=== PATIENT | male | born 1940 | race Caucasian/White ===

== ENCOUNTER 2016-10-03 13:06 | Inpatient (IN) | payer MEDICARE, BC ==
[2016-10-03 15:20] LABS: Hematocrit 25 % (42-52); Hemoglobin 8.6 g/dl (14.0-18.0); Mean Corpuscular HGB Conc 34 g/dl (31-36); Mean Corpuscular Hemoglobin 33 pg (27-31); Mean Corpuscular Volume 98 fL (80-94); Mean Platelet Volume 10 um3 (7.4-10.4); Red Blood Count 2.58 10^6/ul (4.0-5.4); Red Cell Distribution Width 14 % (10.5-15); White Blood Count 5.2 10^3/ul (3.5-10.8)
[2016-10-03 15:21] LABS: Comments Flag Yes
[2016-10-03 15:22] LABS: Add Diff/Slide Review? Slide Review Added
[2016-10-03 15:30] LABS: Albumin 2.9 g/dL (3.2-5.2); BUN/Creatinine Ratio 26.2 (8-20); Calcium 8.2 mg/dL (8.6-10.3); EGFR African American 86.2 (>60); Potassium 3.8 mmol/L (3.5-5.0); Total Bilirubin 0.8 mg/dL (0.2-1.0); Total Protein 4.9 g/dL (6.4-8.9)
[2016-10-03] MEDS ORDERED: Pantoprazole IV* 40 MG IV ONE (15:51)
--- NOTE | 2016-10-03 15:53 | ED ---
Deniz, DoctorEssie, scribed for Donna Sanchez MD on 10/03/16 at 1338 . GI/ HPI - HPI Summary HPI Summary: 76 year old male arrived to [facility] c/o black tarry stools beginning yesterday. He has had two small black tarry stools, but has not had any BMs today. Pt additionally reports feeling dizziness and has had consistent nosebleeds for the past three weeks; he denies any abdominal pain. He is not taking Iron Supplements or Pepto Bismol. Pt has PMHx of CAD (dx in 1986) and has had multiple DE episodes and stents put in. His most recent DE was three weeks ago, during which a stent was placed. Pt had AFib during this procedure and as such is taking Zoralto as well as Brilinta and Asprin. He lives with his and does not smoke; his PCP is Dr. Tenisha Cabrera. - History of Current Complaint Chief Complaint: EDDizziness Time Seen by Provider: 10/03/16 13:31 Stated Complaint: BLOOD IN STOOL Hx Obtained From: Patient Onset/Duration: Started Days Ago Timing: Intermittent Severity: Moderate Current Severity: Moderate Vaginal Bleeding Description: Dark Red Pain Intensity: 0 Location of Pain: None Associated Signs and Symptoms: Positive: Dizziness, Black Tarry Stool, Other: - epistaxis. Negative: Abdominal Pain - Allergy/Home Medications Allergies/Adverse Reactions: Allergies Allergy/AdvReac Type Severity Reaction Status Date / Time No Known Allergies Allergy Verified 10/03/16 14:50 PMH/Surg Hx/FS Hx/Imm Hx Cardiovascular History: Reports: Hx Coronary Artery Disease, Hx Myocardial Infarction Infectious Disease History: Denies: Traveled Outside the [place] in Last 30 Days - Social History Occupation: Employed Full-time Lives: With Family Alcohol Use: Daily - 1 glass of wine/day Smoking Status (MU): Never Smoked Tobacco Review of Systems Negative: Fever Positive: Epistaxis Positive: Other - black tarry stools. Negative: Abdominal Pain All Other Systems Reviewed And Are Negative: Yes Physical Exam Triage Information Reviewed: Yes Vital Signs On Initial Exam: Initial Vitals Temp Pulse Resp BP Pulse Ox 98 F 53 16 112/53 100 10/03/16 13:20 10/03/16 13:20 10/03/16 13:20 10/03/16 13:20 10/03/16 13:20 Vital Signs Reviewed: Yes Appearance: Positive: Well-Appearing, No Pain Distress Skin: Positive: Warm, Skin Color Reflects Adequate Perfusion, Dry Eyes: Positive: EOMI, GWYN ENT: Positive: Pharynx normal, TMs normal Neck: Positive: Supple, Nontender Respiratory/Lung Sounds: Positive: Clear to Auscultation, Breath Sounds Present. Negative: Rales, Rhonchi, Wheezes Cardiovascular: Positive: RRR. Negative: Murmur, Rub Abdomen Description: Positive: Nontender, Soft. Negative: Distended, Guarding Bowel Sounds: Positive: Present Male Genital Exam: Positive: other - Moderate amount of external rectal bleeding Musculoskeletal: Positive: Strength/ROM Intact. Negative: Edema Left, Edema Right Neurological: Positive: Sensory/Motor Intact, Alert, Oriented to Person Place, Time, CN Intact II-III Psychiatric: Positive: Affect/Mood Appropriate Diagnostics - Vital Signs Vital Signs Temp Pulse Resp BP Pulse Ox 10/03/16 13:20 98 F 53 16 112/53 100 - Laboratory Lab Results: Lab Results 10/03/16 10/03/16 10/03/16 Range/Units 14:30 14:30 14:30 WBC 5.2 (3.5-10.8) 10^3/ul RBC 2.58 L (4.0-5.4) 10^6/ul Hgb 8.6 L (14.0-18.0) g/dl Hct 25 L (42-52) % MCV 98 H (80-94) fL MCH 33 H (27-31) pg MCHC 34 (31-36) g/dl RDW 14 (10.5-15) % Plt Count 72 L (150-450) 10^3/ul MPV 10 (7.4-10.4) um3 Neut % (Auto) 71.5 (38-83) % Lymph % (Auto) 20.7 L (25-47) % [place] % (Auto) 6.8 (1-9) % Eos % (Auto) 0.8 (0-6) % Baso % (Auto) 0.2 (0-2) % Absolute Neuts (auto) 3.7 (1.5-7.7) 10^3/ul Absolute Lymphs (auto) 1.1 (1.0-4.8) 10^3/ul Absolute Monos (auto) 0.4 (0-0.8) 10^3/ul Absolute Eos (auto) 0 (0-0.6) 10^3/ul Absolute Basos (auto) 0 (0-0.2) 10^3/ul Absolute Nucleated RBC 0 10^3/ul Nucleated RBC % 0 INR (Anticoag Therapy) 1.96 H (0.89-1.11) APTT 29.2 (26.0-36.3) seconds Sodium (133-145) mmol/L Potassium (3.5-5.0) mmol/L Chloride (101-111) mmol/L Carbon Dioxide (22-32) mmol/L Anion Gap (2-11) mmol/L BUN (6-24) mg/dL Creatinine (0.67-1.17) mg/dL Est GFR ( Amer) (>60) Est GFR (Non-Af Amer) (>60) BUN/Creatinine Ratio (8-20) Glucose (70-100) mg/dL Lactic Acid 1.2 (0.5-2.0) mmol/L Calcium (8.6-10.3) mg/dL Total Bilirubin (0.2-1.0) mg/dL AST (13-39) U/L ALT (7-52) U/L Alkaline Phosphatase (34-104) U/L Total Protein (6.4-8.9) g/dL Albumin (3.2-5.2) g/dL Globulin (2-4) g/dL Albumin/Globulin Ratio (1-3) Blood Type Antibody Screen 10/03/16 10/03/16 Range/Units 14:30 14:30 WBC (3.5-10.8) 10^3/ul RBC (4.0-5.4) 10^6/ul Hgb (14.0-18.0) g/dl Hct (42-52) % MCV (80-94) fL MCH (27-31) pg MCHC (31-36) g/dl RDW (10.5-15) % Plt Count (150-450) 10^3/ul MPV (7.4-10.4) um3 Neut % (Auto) (38-83) % Lymph % (Auto) (25-47) % [place] % (Auto) (1-9) % Eos % (Auto) (0-6) % Baso % (Auto) (0-2) % Absolute Neuts (auto) (1.5-7.7) 10^3/ul Absolute Lymphs (auto) (1.0-4.8) 10^3/ul Absolute Monos (auto) (0-0.8) 10^3/ul Absolute Eos (auto) (0-0.6) 10^3/ul Absolute Basos (auto) (0-0.2) 10^3/ul Absolute Nucleated RBC 10^3/ul Nucleated RBC % INR (Anticoag Therapy) (0.89-1.11) APTT (26.0-36.3) seconds Sodium 138 (133-145) mmol/L Potassium 3.8 (3.5-5.0) mmol/L Chloride 109 (101-111) mmol/L Carbon Dioxide 26 (22-32) mmol/L Anion Gap 3 (2-11) mmol/L BUN 28 H (6-24) mg/dL Creatinine 1.07 (0.67-1.17) mg/dL Est GFR ( Amer) 86.2 (>60) Est GFR (Non-Af Amer) 67.0 (>60) BUN/Creatinine Ratio 26.2 H (8-20) Glucose 114 H (70-100) mg/dL Lactic Acid (0.5-2.0) mmol/L Calcium 8.2 L (8.6-10.3) mg/dL Total Bilirubin 0.80 (0.2-1.0) mg/dL AST 24 (13-39) U/L ALT 24 (7-52) U/L Alkaline Phosphatase 55 (34-104) U/L Total Protein 4.9 L (6.4-8.9) g/dL Albumin 2.9 L (3.2-5.2) g/dL Globulin 2.0 (2-4) g/dL Albumin/Globulin Ratio 1.5 (1-3) Blood Type B Positive Antibody Screen Pending Result Diagrams: 10/03/16 14:30 10/03/16 14:30 Lab Statement: Any lab studies that have been ordered have been reviewed, and results considered in the medical decision making process. - EKG 13:26 EKG Rhythm: Sinus Bradycardia EKG Interpretation: Sinus Bradycardia with RBBB. Diffuse t-wave inversions on precordial leads. EKG Comparison: Other - None to compare but pt had a recent DE, changes may be related to that. Re-Evaluation - Re-Evaluation First Eval Re-Evaluation Time: 15:43 Change: Unchanged Comment: Discussed treatment plan and informed pt about pending cardiology consult GIGU Course/Dx - Course Course Of Treatment: case discussed with both Augustus and Sohan given scant bleeding but with a significant drop in Hg the fear is he will bleed significantly and it will be difficult to tell if this is new or old. Pt agrees to admission protonix started - Diagnoses Provider Diagnoses: GI bleed Discharge - Discharge Plan Condition: Stable Disposition: ADMITTED TO [facility] The documentation as recorded by the Doctor dalton Tahera accurately reflects the service I personally performed and the decisions made by me, Donna Sanchez MD.
[2016-10-03] MEDS ORDERED: Nitroglycerin TAB 0.4 MG* 0.4 MG TAB SL PRN (16:44)
[2016-10-03] MEDS: Pantoprazole IV* 80 MG in NS 0.9% 250 ML* 250 ML IV SCH (17:09)
[2016-10-03] MEDS ORDERED: Niacin ER TAB* 500 MG PO SCH (18:00)
[2016-10-03] MEDS: NS 0.9% 1000 ML* 1,000 ML IV SCH (20:12)
[2016-10-03 20:20] LABS: Hematocrit 25 % (42-52); Hemoglobin 8.4 g/dl (14.0-18.0)
[2016-10-03 20:23] LABS: Comments Flag Yes
[2016-10-03] MEDS ORDERED: Niacin ER TAB* 500 MG PO ONE (21:40)
[2016-10-03] MEDS: Ticagrelor* 90 MG TAB PO SCH (21:54)
[2016-10-03] MEDS: Metoprolol Tartrate TAB* 25 MG PO SCH (21:54)
[2016-10-04 01:07] LABS: Hematocrit 20 % (42-52)
[2016-10-04 01:11] LABS: Comments Flag Yes
[2016-10-04] MEDS: Pantoprazole IV* 80 MG in NS 0.9% 250 ML* 250 ML IV SCH ×4 (04:05→21:34)
--- NOTE | 2016-10-04 04:16 | HP ---
HISTORY AND PHYSICAL: DATE OF ADMISSION: 10/03/16 TIME OF EVALUATION: 4:15 p.m. PRIMARY CARE PROVIDER: Dr. Juliana Cabrera. DOCUMENTATION DESIGNER: Dr. Zander Coffman. CONSULTING FARM EQUIPMENT SERVICE TECHNICIAN: Dr. Price Latham. CHIEF COMPLAINT: "I'm lightheaded." HISTORY OF PRESENT ILLNESS: Mr. Moulton is a 76-year-old male with a past medical history of coronary artery disease, BPH who presents to the emergency room with complaints of lightheadedness. The patient states that he was in his usual state of health until 3 weeks ago. He went to visit family in [place] and while there, he experienced some chest pain that initially he thought was associated with indigestion as he had had Mexican food the night before. The symptoms persisted and he went to the emergency room where he was found to have an CO. He states he was admitted to [facility] in [place], [place], and he underwent cardiac catheterization and had a stent placed. He states that after the procedure, he developed atrial fibrillation. So, when he was discharged, he went home on aspirin, Brilinta, and Xarelto. He states that he was doing well with no symptoms, but 3 days ago, he started to have lightheadedness when changing position. Two days ago, he had one bowel movement that he described as tarry stool and he saw a little bit of blood when he wiped himself, but he states that he was not concerned because he states that he is used with bleeding when he is shaving or when he cuts himself. So, he did not think that amount of blood signified anything. The next day, he had another episode of tarry stools and he has had epistaxis on and off for the past 3 weeks too, but he does not describe any large volume epistaxis or swallowing blood. Today, he felt more lightheaded and weak what prompted his visit to the emergency room. He denies any prior episodes of GI issues in the past. He never had an endoscopy. He had a routine colonoscopy 5 years ago that he describes was normal done by Dr. Yanez. He denies chest pain, palpitations, or shortness of breath, and at the time of my evaluation, the patient is in normal sinus rhythm. PAST MEDICAL HISTORY: 1. Coronary artery disease. The patient states he had a CABG in 1986 and has had multiple procedures with stent, angioplasty since then. The last one was 3 weeks ago as described above. 2. BPH. MEDICATIONS: 1. Aspirin 81 mg p.o. daily. 2. Atorvastatin 40 mg p.o. daily. 3. Metoprolol tartrate 12.5 mg p.o. b.i.d. 4. Niaspan ER 1000 mg p.o. b.i.d. 5. Nitroglycerin 0.4 mg sublingual q.5 minutes p.r.n. chest pain, maximum 3 doses. 6. Xarelto 20 mg p.o. daily with meals. 7. Brilinta 90 mg p.o. b.i.d. ALLERGIES: No known drug allergies. FAMILY HISTORY: There is a strong family history of coronary artery disease. His father, his brother all had CABGs. Brother has lung cancer. Mother passed of colon cancer. SOCIAL HISTORY: The patient smoked for 5 years when he was in his 20s. He states that he drinks a glass of wine a day, but has avoided it since this last heart attack as he was not sure how his new medications would interact with alcohol. He denies drug use. Surrogate decision maker is his , Catie Fitzgerald. Phone number is [phone]. 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 REVIEW OF SYSTEMS: A 14-point review of systems was performed and all the pertinent negative and positive findings are in the HPI. PHYSICAL EXAMINATION GENERAL: The patient is a pleasant, elderly male, lying in the ER stretcher, in no acute distress. VITAL SIGNS: Temperature 98.6, heart rate is 64, respiratory rate is 19, oxygen saturation is 98% on room air, blood pressure is 105/47. HEENT: Pupils are equal, reactive to light. Moist mucous membranes. There is no pallor at this time. CHEST: Breath sounds present bilaterally with no added sounds. CVS: Normal S1, S2. Regular rate and rhythm. ABDOMEN: Soft, nontender, nondistended. Bowel sounds are present. EXTREMITIES: No edema. NEUROLOGIC: He is alert and oriented x3. Able to move all 4 extremities. LABORATORY AND IMAGING DATA: The patient had a CBC that showed a WBC of 5.2, hemoglobin of 8.6, hematocrit of 25, MCV of 98, MCH of 33, platelets of 72. INR is 1.96. Chemistry showed a sodium of 138, potassium 3.8, chloride of 109, bicarb 26, BUN of 29, creatinine of 1.07, glucose of 114. Lactic acid was 1.2. LFTs were normal. EKG done on 10/03/16 at 1326 showed sinus bradycardia at 50 beats per minute with Q waves in II, III, aVF with T inversions in V1 to V6. There is no prior EKG to compare. ASSESSMENT AND PLAN: Mr. Moulton is a 76-year-old male with an extensive history of coronary artery disease with an myocardial infarction 3 weeks ago while visiting family in [place], status post heart cath and stent, also developed atrial fibrillation after his cardiac catheterization, benign prostatic hypertrophy who presented to the emergency room with complaints of tarry stools and lightheadedness, found to have an upper GI bleed. 1. Upper GI bleed: Suspect the patient has an upper GI bleed as he has had tarry stools. BUN is elevated at 28 with a normal creatinine. The patient is on aspirin, Brilinta, and Xarelto and I have discussed his anticoagulation with his director software (Dr. Coffman). His recommendation at this time was to discontinue Xarelto, but continue aspirin and Brilinta for now. The patient will be admitted to the telemetry floor. A GI consultation was requested with Dr. Latham. He will be on a clear liquid diet. He will be started on a Protonix drip and Dr. Latham will hopefully perform upper endoscopy tomorrow. The patient is hemodynamically stable at this time and I do not think Kcentra is indicated at this point. The idea is to stop Xarelto and continue to monitor him. 2. Acute blood loss anemia: The patient's hemoglobin is 8.6 today from a baseline around 14 two years ago. With hemoglobin of 8.6, I do not think the patient needs transfusion at this point. He is hemodynamically stable and is only symptomatic with change in position, but I believe if his hemoglobin goes below 8, transfusion will be indicated considering his history of coronary artery disease and recent procedure. 3. Thrombocytopenia: The patient's platelet count is 72. He did have thrombocytopenia in the past, but it was in the 100,000 before. For now, we are just going to monitor. 4. Coronary artery disease: Appears to be stable at this time. He has no complaints of chest pain. I am going to obtain records from [place]. He is going to be continued on aspirin, Brilinta for now as discussed with Dr. Coffman. I am going to continue his metoprolol with holding parameters and I am also going to continue his atorvastatin. 5. DVT prophylaxis: The patient has a score of 3 on the DVT Prophylaxis Risk Assessment Guide and pharmacological prophylaxis is contraindicated in the setting of an upper GI bleed. The patient will have SCDs. 6. Code status is full. TIME SPENT: Approximately 60 minutes were spent with the patient interview, medical records review, physical examination to complete this admission, more than half this time was spent [id number] with the patient in coordination of care. CC: Dr. Juliana Cabrera; Dr. Zander Coffman; Dr. Price Latham* [id number]/CPS #: [id number] MTDD
[2016-10-04 06:12] LABS: Hematocrit 23 % (42-52); Hemoglobin 7.9 g/dl (14.0-18.0); Mean Corpuscular HGB Conc 34 g/dl (31-36); Mean Corpuscular Hemoglobin 33 pg (27-31); Mean Corpuscular Volume 99 fL (80-94); Mean Platelet Volume 10 um3 (7.4-10.4); Red Blood Count 2.36 10^6/ul (4.0-5.4); Red Cell Distribution Width 14 % (10.5-15); White Blood Count 4.1 10^3/ul (3.5-10.8)
[2016-10-04 06:13] LABS: Comments Flag Yes
[2016-10-04 06:26] LABS: BUN/Creatinine Ratio 23.1 (8-20); Calcium 7.8 mg/dL (8.6-10.3); EGFR African American 85.3 (>60); EGFR Non-African American 66.3 (>60); Potassium 3.9 mmol/L (3.5-5.0)
[2016-10-04] MEDS: NS 0.9% 1000 ML* 1,000 ML IV SCH (06:51)
[2016-10-04] MEDS: Metoprolol Tartrate TAB* 25 MG PO SCH ×2 (08:26→21:19)
[2016-10-04] MEDS: Atorvastatin* 40 MG TAB PO SCH (08:30)
[2016-10-04] MEDS: Ticagrelor* 90 MG TAB PO SCH ×2 (08:31→21:29)
[2016-10-04] MEDS: Niacin ER TAB* 500 MG PO SCH ×3 (08:31→17:46)
[2016-10-04] MEDS: Aspirin EC Low Dose* 81 MG TAB.EC PO SCH (08:31)
[2016-10-04] MEDS ORDERED: Pantoprazole IV* 40 MG ONE (13:58)
[2016-10-04] MEDS ORDERED: Meperidine SYRINGE* 50 MG/ML ONE (15:25)
[2016-10-04] MEDS ORDERED: Midazolam* 1 MG/ML 10 ML VIAL (10 MG) ONE (15:26)
--- NOTE | 2016-10-04 19:45 | PN ---
Subjective Date of Service: 10/04/16 Interval History: Pt is feeling ok but he is very disoriented. He denies pain. He keeps asking me why I have him here for this game. Objective Active Medications: Aspirin (Aspirin Ec Low Dose*) 81 mg PO DAILY [facility] Last Admin: 10/04/16 08:31 Dose: 81 mg Atorvastatin Calcium (Lipitor*) 40 mg PO DAILY [facility] Last Admin: 10/04/16 08:30 Dose: 40 mg Pantoprazole Sodium 80 mg/ (Sodium Chloride) 250 mls @ 25 mls/hr IV Q10H [facility] Last Admin: 10/04/16 17:44 Dose: 25 mls/hr Sodium Chloride (Ns 0.9% 1000 Ml*) 1,000 mls @ 100 mls/hr IV PER RATE [facility] Last Admin: 10/04/16 06:51 Dose: 100 mls/hr Metoprolol Tartrate (Lopressor Tab*) 12.5 mg PO BID [facility] Last Admin: 10/04/16 08:26 Dose: Not Given Niacin (Niaspan Er Tab*) 1,000 mg PO QAM [facility] Last Admin: 10/04/16 08:31 Dose: 1,000 mg Niacin (Niaspan Er Tab*) 2,000 mg PO QPM [facility] Last Admin: 10/04/16 17:46 Dose: Not Given Nitroglycerin (Nitroglycerin Tab 0.4 Mg*) 0.4 mg SL Q5M PRN PRN Reason: PAIN - CHEST Ticagrelor (Brilinta*) 90 mg PO BID [facility] Last Admin: 10/04/16 08:31 Dose: 90 mg Vital Signs 10/03/16 10/03/16 10/03/16 20:00 20:21 23:29 Temperature 98.1 F 98.6 F Pulse Rate 64 57 Respiratory 16 18 16 Rate Blood Pressure 118/45 85/51 (mmHg) O2 Sat by Pulse 99 99 Oximetry 10/03/16 10/04/16 10/04/16 23:37 00:54 03:41 Temperature 98.4 F Pulse Rate 60 54 Respiratory 16 Rate Blood Pressure 87/45 100/58 92/45 (mmHg) O2 Sat by Pulse 100 Oximetry 10/04/16 10/04/16 10/04/16 06:13 07:14 07:28 Temperature 97.8 F 98.0 F Pulse Rate 64 64 65 Respiratory 16 16 Rate Blood Pressure 96/46 90/42 (mmHg) O2 Sat by Pulse 100 97 Oximetry 10/04/16 10/04/16 10/04/16 08:00 11:19 17:13 Temperature 98.3 F 97.9 F Pulse Rate 62 59 Respiratory 16 16 Rate Blood Pressure 92/42 97/45 (mmHg) O2 Sat by Pulse 99 98 Oximetry 10/04/16 10/04/16 10/04/16 17:15 17:30 17:45 Temperature Pulse Rate 59 59 68 Respiratory Rate Blood Pressure 94/44 95/42 98/54 (mmHg) O2 Sat by Pulse 98 96 99 Oximetry 10/04/16 10/04/16 18:00 18:30 Temperature Pulse Rate 56 55 Respiratory Rate Blood Pressure 96/44 92/44 (mmHg) O2 Sat by Pulse 98 98 Oximetry Oxygen Devices in Use Now: None Appearance: Elderly male sitting on the bed, squirming all over the place, NAD Eyes: No Scleral Icterus Ears/Nose/Mouth/Throat: Mucous Membranes Moist Respiratory: Symmetrical Chest Expansion and Respiratory Effort, Clear to Auscultation Cardiovascular: NL Sounds; No Murmurs; No JVD, RRR, No Edema Abdominal: NL Sounds; No Tenderness; No Distention Extremities: No Clubbing, Cyanosis Skin: No Rash or Ulcers, No Nodules or Sclerosis Neurological: - - very confused Result Diagrams: 10/04/16 05:39 10/04/16 05:39 Additional Lab and Data: Lab Results 10/03/16 10/03/16 10/03/16 Range/Units 14:30 14:30 14:30 WBC 5.2 (3.5-10.8) 10^3/ul RBC 2.58 L (4.0-5.4) 10^6/ul Hgb 8.6 L (14.0-18.0) g/dl Hct 25 L (42-52) % MCV 98 H (80-94) fL MCH 33 H (27-31) pg MCHC 34 (31-36) g/dl RDW 14 (10.5-15) % Plt Count 72 L (150-450) 10^3/ul MPV 10 (7.4-10.4) um3 Neut % (Auto) 71.5 (38-83) % Lymph % (Auto) 20.7 L (25-47) % [place] % (Auto) 6.8 (1-9) % Eos % (Auto) 0.8 (0-6) % Baso % (Auto) 0.2 (0-2) % Absolute Neuts (auto) 3.7 (1.5-7.7) 10^3/ul Absolute Lymphs (auto) 1.1 (1.0-4.8) 10^3/ul Absolute Monos (auto) 0.4 (0-0.8) 10^3/ul Absolute Eos (auto) 0 (0-0.6) 10^3/ul Absolute Basos (auto) 0 (0-0.2) 10^3/ul Absolute Nucleated RBC 0 10^3/ul Nucleated RBC % 0 INR (Anticoag Therapy) 1.96 H (0.89-1.11) APTT 29.2 (26.0-36.3) seconds Sodium (133-145) mmol/L Potassium (3.5-5.0) mmol/L Chloride (101-111) mmol/L Carbon Dioxide (22-32) mmol/L Anion Gap (2-11) mmol/L BUN (6-24) mg/dL Creatinine (0.67-1.17) mg/dL Est GFR ( Amer) (>60) Est GFR (Non-Af Amer) (>60) BUN/Creatinine Ratio (8-20) Glucose (70-100) mg/dL Lactic Acid 1.2 (0.5-2.0) mmol/L Calcium (8.6-10.3) mg/dL Total Bilirubin (0.2-1.0) mg/dL AST (13-39) U/L ALT (7-52) U/L Alkaline Phosphatase (34-104) U/L Total Protein (6.4-8.9) g/dL Albumin (3.2-5.2) g/dL Globulin (2-4) g/dL Albumin/Globulin Ratio (1-3) Blood Type Antibody Screen 10/03/16 10/03/16 Range/Units 14:30 14:30 WBC (3.5-10.8) 10^3/ul RBC (4.0-5.4) 10^6/ul Hgb (14.0-18.0) g/dl Hct (42-52) % MCV (80-94) fL MCH (27-31) pg MCHC (31-36) g/dl RDW (10.5-15) % Plt Count (150-450) 10^3/ul MPV (7.4-10.4) um3 Neut % (Auto) (38-83) % Lymph % (Auto) (25-47) % [place] % (Auto) (1-9) % Eos % (Auto) (0-6) % Baso % (Auto) (0-2) % Absolute Neuts (auto) (1.5-7.7) 10^3/ul Absolute Lymphs (auto) (1.0-4.8) 10^3/ul Absolute Monos (auto) (0-0.8) 10^3/ul Absolute Eos (auto) (0-0.6) 10^3/ul Absolute Basos (auto) (0-0.2) 10^3/ul Absolute Nucleated RBC 10^3/ul Nucleated RBC % INR (Anticoag Therapy) (0.89-1.11) APTT (26.0-36.3) seconds Sodium 138 (133-145) mmol/L Potassium 3.8 (3.5-5.0) mmol/L Chloride 109 (101-111) mmol/L Carbon Dioxide 26 (22-32) mmol/L Anion Gap 3 (2-11) mmol/L BUN 28 H (6-24) mg/dL Creatinine 1.07 (0.67-1.17) mg/dL Est GFR ( Amer) 86.2 (>60) Est GFR (Non-Af Amer) 67.0 (>60) BUN/Creatinine Ratio 26.2 H (8-20) Glucose 114 H (70-100) mg/dL Lactic Acid (0.5-2.0) mmol/L Calcium 8.2 L (8.6-10.3) mg/dL Total Bilirubin 0.80 (0.2-1.0) mg/dL AST 24 (13-39) U/L ALT 24 (7-52) U/L Alkaline Phosphatase 55 (34-104) U/L Total Protein 4.9 L (6.4-8.9) g/dL Albumin 2.9 L (3.2-5.2) g/dL Globulin 2.0 (2-4) g/dL Albumin/Globulin Ratio 1.5 (1-3) Blood Type B Positive Antibody Screen Pending Microbiology and Other Data: Microbiology 10/04/16 05:13 Stool Occult Blood (JULIANA) - Final Stool Assess/Plan/Problems-Billing Mr Moulton is a 76 yo M who has a h/o recent NSTEMI s/p cardiac catheterization and stent placement, atrial fibrillation on xarelto who presented to the ER wtih c/o black tarry stools and lightheadedness. - Patient Problems (1) Upper GI bleed Current Visit: Yes Status: Acute Code(s): K92.2 - GASTROINTESTINAL HEMORRHAGE, UNSPECIFIED SNOMED Code(s): 41087555 Comment: Pt is s/p EGD earlier today. Gastritis/duodenitis was found. No active bleeding. Will continue the protonix drip for now. Repeat H/H tomorrow AM. He should follow up with Dr. Latham in about 1 month. (2) CAD (coronary artery disease) Current Visit: Yes Status: Acute Code(s): I25.10 - ATHSCL HEART DISEASE OF [place] CORONARY ARTERY W/O ANG PCTRS SNOMED Code(s): 44722058 Comment: Continue ASA, brillinta, niacin, lipitor and metoprolol. No complaints of chest pain at this time but he is very confused. (3) Atrial fibrillation Current Visit: Yes Status: Acute Code(s): I48.91 - UNSPECIFIED ATRIAL FIBRILLATION SNOMED Code(s): 74073917 Comment: Pt has a h/o afib following his recent MT. He had been started on xarelto though this is now discontinued due to his GI bleed. He is currently in NSR. He will remain off the xarelto until seen in follow up by cardiology. (4) DVT prophylaxis Current Visit: Yes Status: Acute Code(s): PDO9980 - SNOMED Code(s): 899228048 (5) Full code status Current Visit: Yes Status: Acute Code(s): Z78.9 - OTHER SPECIFIED HEALTH STATUS SNOMED Code(s): 015142054
--- NOTE | 2016-10-04 23:36 | CONS ---
GASTROENTEROLOGY CONSULTATION DATE OF CONSULT: 10/04/16 CONSULTING PHYSICIANS: Juliana Cabrera MD; Zander Coffman MD REASON FOR CONSULTATION: Melena in a man on Brilinta and Xarelto following a 5- day admission to a [facility] where a cardiac stent was placed. 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 He went to a local hospital and while there had a cardiac stent placed. He thinks it was done in time, that documentation of any cardiac damage is not available now. He did have some atrial fibrillation for about 16 hours and says he has never had that before. He was thus discharged on his usual baby aspirin with the addition of Brilinta 90 twice a day and Xarelto 20 mg. He was fine for a few days after flying back here to [place]. Approximately on 09/29/16, he began feeling a little lightheaded and the stool has turned dark. He decided to wait out the weekend and then he called Dr. Coffman's office and reporting to the nurse dark stool and was directed to the emergency room, where his hemoglobin was 8.6, hematocrit 25, and MCV 98. He was placed on Protonix drip and Xarelto discontinued. He had already seen Dr. Coffman in followup and amiodarone had been discontinued, though he was continued on metoprolol. He has never had any problem in the past and does not take any gastrointestinal remedies. He has never had an upper endoscopy. PAST MEDICAL HISTORY: 1. Coronary disease - status post coronary artery bypass in 1986 and then 2 stents placed in 1991. In 1996, there was concern and he had a cardiac catheterization, where stents were not placed as apparently anatomy was not favorable. He follows up with Dr. Coffman regularly. 2. Appendectomy - 1946. 3. Diverticulosis - seen at his routine colonoscopies, 1996 and 2005. MEDICATIONS: At home include: 1. Niaspan. 2. Atorvastatin. 3. Baby aspirin. 4. Metoprolol. 5. Recent addition of Brilinta. 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 REVIEW OF SYSTEMS: No history of hemoptysis, TB, COPD, smoking, hepatitis, jaundice, rectal bleeding, dietary supplements, or syncope. He has never had any seizures. PHYSICAL EXAM: He is a healthy-appearing, slightly pale, older man appearing much younger than stated age. He is an excellent historian. HEENT exam is unremarkable. He has no adenopathy. His lungs are clear and heart sounds are normal. The abdomen is flat with an old appy scar. Soft and nontender. Rectal : Deferred. Extremities show no edema. Neurologic shows normal cranial nerves , speech, gait, and strength of all 4 extremities. LABS: His hemoglobin fell to 8.4, then 7.0 and then this morning bounced up to 7.9. BUN initially was 28, above his usual baseline in the teens, although he did have a BUN of 24, 05/17/16. His albumin was 2.9. This is the only value in the EMR. INR was 1.96 on admission presumably from Xarelto effect. IMPRESSION: Melena in a man on triple anticoagulation after coronary stents. He is in sinus rhythm now and the decision has been made to stop Xarelto. He is being treated empirically for a peptic condition, which is appropriate and he will have upper endoscopy. [id number]/[facility] #: [id number] [facility]AMPUS[facility]
[2016-10-05] MEDS: Pantoprazole IV* 80 MG in NS 0.9% 250 ML* 250 ML IV SCH ×2 (04:19→10:49)
[2016-10-05] MEDS: NS 0.9% 1000 ML* 1,000 ML IV SCH (04:20)
[2016-10-05 04:58] LABS: Hematocrit 23 % (42-52); Hemoglobin 7.7 g/dl (14.0-18.0); Mean Corpuscular HGB Conc 34 g/dl (31-36); Mean Corpuscular Hemoglobin 34 pg (27-31); Mean Corpuscular Volume 99 fL (80-94); Mean Platelet Volume 10 um3 (7.4-10.4); Red Blood Count 2.31 10^6/ul (4.0-5.4); Red Cell Distribution Width 14 % (10.5-15); White Blood Count 3.4 10^3/ul (3.5-10.8)
[2016-10-05 04:59] LABS: Comments Flag Yes
[2016-10-05] MEDS: Atorvastatin* 40 MG TAB PO SCH (08:40)
[2016-10-05] MEDS: Metoprolol Tartrate TAB* 25 MG PO SCH (08:40)
[2016-10-05] MEDS: Niacin ER TAB* 500 MG PO SCH (08:40)
[2016-10-05] MEDS: Ticagrelor* 90 MG TAB PO SCH (08:40)
[2016-10-05] MEDS: Aspirin EC Low Dose* 81 MG TAB.EC PO SCH (08:40)
--- NOTE | 2016-10-05 10:44 | PRO ---
DATE: 10/04/16 - ROOM #447 REFERRING PHYSICIAN: Zander Coffman MD * PROCEDURE: Upper gastrointestinal endoscopy. INDICATION: Melena for four days with hemoglobin falling to 7.0 in a man who had a cardiac stent three weeks ago. ENDOSCOPIST: Dr. Latham. MEDICATIONS: Midazolam 5, meperidine 37.5. FINDINGS: He is a tall, healthy-appearing man, appearing younger than the stated age. EGD: Larynx - symmetric limited views. Esophagus - Easily entered. The mucosa is normal in the upper, mid, and lower esophagus. The GE junction is a little loose, but there are no erosions and no chronic changes. There is no hiatal hernia, no gagging or fundic prolapse. Stomach - Generally normal mucosa in the cardia, fundus, and body. In the distal antrum, there is just a slight amount of granularity and irritation in the prepyloric area, 6 to 7 o'clock orientation. There is no bleeding per se. No AVM is seen. Pylorus appears normal. Duodenum - the proximal bulb appears normal. At the distal bulb, there is some erythema; and then, in the second portion of the duodenum, a fair number of discrete submillimeter red points. There are no erosions and no bleeding. The second portion has a very prominent papilla and intramural common bile duct. No blood is seen, and no AVMs. IMPRESSION: 1. Gastritis and duodenitis - probably from the baby aspirin. 2. Gastrointestinal bleeding - upper GI pattern as the BUN was 10 to 12 points above his baseline and presenting with melena. He is probably bleeding from aspirin gastritis under the influence of Brilinta and Xarelto in combination. An arbitrary 10 days of double-dose Protonix followed by single dose is recommended. He was in sinus rhythm the entire procedure, so avoiding Xarelto appears reasonable. [id number]/[facility] #: [id number] [facility]
[2016-10-05 11:35] VITALS: BP 115/41
--- NOTE | 2016-10-05 14:02 | PN ---
Subjective Date of Service: 10/05/16 Interval History: Mr. Moulton denies complaint and is very eager for discharge. Objective Active Medications: Aspirin (Aspirin Ec Low Dose*) 81 mg PO DAILY [facility] Atorvastatin Calcium (Lipitor*) 40 mg PO DAILY [facility] Pantoprazole Sodium 80 mg/ (Sodium Chloride) 250 mls @ 25 mls/hr IV Q10H [facility] Sodium Chloride (Ns 0.9% 1000 Ml*) 1,000 mls @ 100 mls/hr IV PER RATE [facility] Metoprolol Tartrate (Lopressor Tab*) 12.5 mg PO BID [facility] Niacin (Niaspan Er Tab*) 1,000 mg PO QAM [facility] Niacin (Niaspan Er Tab*) 2,000 mg PO QPM [facility] Nitroglycerin (Nitroglycerin Tab 0.4 Mg*) 0.4 mg SL Q5M PRN Ticagrelor (Brilinta*) 90 mg PO BID [facility] Vital Signs 10/04/16 10/04/16 10/04/16 17:13 17:15 17:30 Temperature 97.9 F Pulse Rate 59 59 59 Respiratory Rate Blood Pressure 97/45 94/44 95/42 (mmHg) O2 Sat by Pulse 98 98 96 Oximetry 10/04/16 10/04/16 10/04/16 17:45 18:00 18:30 Temperature Pulse Rate 68 56 55 Respiratory Rate Blood Pressure 98/54 96/44 92/44 (mmHg) O2 Sat by Pulse 99 98 98 Oximetry 10/04/16 10/04/16 10/04/16 19:00 19:39 21:09 Temperature 97.9 F Pulse Rate 58 65 Respiratory 16 16 Rate Blood Pressure 100/49 101/45 (mmHg) O2 Sat by Pulse 99 97 Oximetry 10/05/16 10/05/16 10/05/16 00:14 03:16 07:16 Temperature 98.0 F 98.2 F 97.7 F Pulse Rate 58 62 63 Respiratory 20 20 12 Rate Blood Pressure 96/45 109/50 107/52 (mmHg) O2 Sat by Pulse 97 95 98 Oximetry 10/05/16 10/05/16 08:00 11:34 Temperature 97.4 F Pulse Rate 58 Respiratory 16 18 Rate Blood Pressure 115/41 (mmHg) O2 Sat by Pulse 100 Oximetry Oxygen Devices in Use Now: None Appearance: Male sitting up in bed in NAD Respiratory: Symmetrical Chest Expansion and Respiratory Effort, Clear to Auscultation Cardiovascular: NL Sounds; No Murmurs; No JVD, No Edema Abdominal: NL Sounds; No Tenderness; No Distention Extremities: No Edema Skin: No Rash or Ulcers Neurological: Alert and Oriented x 3, NL Muscle Strength and Tone Nutrition: Taking PO's Result Diagrams: 10/05/16 04:29 10/04/16 05:39 Additional Lab and Data: Lab Results 10/03/16 10/03/16 10/03/16 Range/Units 14:30 14:30 14:30 WBC 5.2 (3.5-10.8) 10^3/ul RBC 2.58 L (4.0-5.4) 10^6/ul Hgb 8.6 L (14.0-18.0) g/dl Hct 25 L (42-52) % MCV 98 H (80-94) fL MCH 33 H (27-31) pg MCHC 34 (31-36) g/dl RDW 14 (10.5-15) % Plt Count 72 L (150-450) 10^3/ul MPV 10 (7.4-10.4) um3 Neut % (Auto) 71.5 (38-83) % Lymph % (Auto) 20.7 L (25-47) % [place] % (Auto) 6.8 (1-9) % Eos % (Auto) 0.8 (0-6) % Baso % (Auto) 0.2 (0-2) % Absolute Neuts (auto) 3.7 (1.5-7.7) 10^3/ul Absolute Lymphs (auto) 1.1 (1.0-4.8) 10^3/ul Absolute Monos (auto) 0.4 (0-0.8) 10^3/ul Absolute Eos (auto) 0 (0-0.6) 10^3/ul Absolute Basos (auto) 0 (0-0.2) 10^3/ul Absolute Nucleated RBC 0 10^3/ul Nucleated RBC % 0 INR (Anticoag Therapy) 1.96 H (0.89-1.11) APTT 29.2 (26.0-36.3) seconds Sodium (133-145) mmol/L Potassium (3.5-5.0) mmol/L Chloride (101-111) mmol/L Carbon Dioxide (22-32) mmol/L Anion Gap (2-11) mmol/L BUN (6-24) mg/dL Creatinine (0.67-1.17) mg/dL Est GFR ( Amer) (>60) Est GFR (Non-Af Amer) (>60) BUN/Creatinine Ratio (8-20) Glucose (70-100) mg/dL Lactic Acid 1.2 (0.5-2.0) mmol/L Calcium (8.6-10.3) mg/dL Total Bilirubin (0.2-1.0) mg/dL AST (13-39) U/L ALT (7-52) U/L Alkaline Phosphatase (34-104) U/L Total Protein (6.4-8.9) g/dL Albumin (3.2-5.2) g/dL Globulin (2-4) g/dL Albumin/Globulin Ratio (1-3) Blood Type Antibody Screen 10/03/16 10/03/16 Range/Units 14:30 14:30 WBC (3.5-10.8) 10^3/ul RBC (4.0-5.4) 10^6/ul Hgb (14.0-18.0) g/dl Hct (42-52) % MCV (80-94) fL MCH (27-31) pg MCHC (31-36) g/dl RDW (10.5-15) % Plt Count (150-450) 10^3/ul MPV (7.4-10.4) um3 Neut % (Auto) (38-83) % Lymph % (Auto) (25-47) % [place] % (Auto) (1-9) % Eos % (Auto) (0-6) % Baso % (Auto) (0-2) % Absolute Neuts (auto) (1.5-7.7) 10^3/ul Absolute Lymphs (auto) (1.0-4.8) 10^3/ul Absolute Monos (auto) (0-0.8) 10^3/ul Absolute Eos (auto) (0-0.6) 10^3/ul Absolute Basos (auto) (0-0.2) 10^3/ul Absolute Nucleated RBC 10^3/ul Nucleated RBC % INR (Anticoag Therapy) (0.89-1.11) APTT (26.0-36.3) seconds Sodium 138 (133-145) mmol/L Potassium 3.8 (3.5-5.0) mmol/L Chloride 109 (101-111) mmol/L Carbon Dioxide 26 (22-32) mmol/L Anion Gap 3 (2-11) mmol/L BUN 28 H (6-24) mg/dL Creatinine 1.07 (0.67-1.17) mg/dL Est GFR ( Amer) 86.2 (>60) Est GFR (Non-Af Amer) 67.0 (>60) BUN/Creatinine Ratio 26.2 H (8-20) Glucose 114 H (70-100) mg/dL Lactic Acid (0.5-2.0) mmol/L Calcium 8.2 L (8.6-10.3) mg/dL Total Bilirubin 0.80 (0.2-1.0) mg/dL AST 24 (13-39) U/L ALT 24 (7-52) U/L Alkaline Phosphatase 55 (34-104) U/L Total Protein 4.9 L (6.4-8.9) g/dL Albumin 2.9 L (3.2-5.2) g/dL Globulin 2.0 (2-4) g/dL Albumin/Globulin Ratio 1.5 (1-3) Blood Type B Positive Antibody Screen Pending Microbiology and Other Data: Microbiology 10/04/16 05:13 Stool Occult Blood (JULIANA) - Final Stool Assess/Plan/Problems-Billing Mr Moulton is a 76 yo M who has a h/o recent NSTEMI s/p cardiac catheterization and stent placement, atrial fibrillation on xarelto who presented to the ER with c/o black tarry stools and lightheadedness. - Patient Problems (1) Confusion Comment: Resolved. Suspect secondary to sedation for EGD. (2) Upper GI bleed Comment: Pt is s/p EGD which found gastritis/duodenitis. No active bleeding. H/ H stable. He should follow up with Dr. Latham in about 1 month. Continue PPI BID x 10 then daily. (3) Atrial fibrillation Comment: Pt has a h/o afib following his recent DC. He had been started on xarelto though this is now discontinued due to his GI bleed. He is currently in NSR. He will remain off the xarelto until seen in follow up by cardiology. (4) BPH (benign prostatic hyperplasia) (5) CAD (coronary artery disease) Comment: Continue ASA, brillinta, niacin, lipitor and metoprolol. No complaints of chest pain. (6) Full code status (7) DVT prophylaxis Status and Disposition: Discharge to home.
--- NOTE | 2016-10-06 09:47 | DS ---
AMENDED REPORT NOW INCLUDES [facility] MEDIC[facility] DISCHARGE SUMMARY: DATE OF ADMISSION: 10/03/16 DATE OF DISCHARGE: 10/05/16 PRIMARY CARE PHYSICIAN: Dr. Juliana Cabrera. ATTENDING PHYSICIAN: Dr. Gayatri Lloyd *(dictation provided by Judy Dial NP) . PRIMARY DIAGNOSES: Upper GI bleed with gastroenteritis and duodenitis. SECONDARY DIAGNOSES: 1. History of coronary artery disease with most recent stent placement 3 weeks ago. 2. Atrial fibrillation, post procedure after stent placement 3 weeks ago. 3. Benign prostatic hypertrophy. MEDICATIONS: 1. Aspirin 81 mg p.o. daily. 2. Atorvastatin 40 mg p.o. daily. 3. Metoprolol tartrate 12.5 mg p.o. b.i.d. 4. Niaspan ER 1000 mg p.o. b.i.d. 5. Nitroglycerin p.r.n. 6. Brilinta 90 mg p.o. b.i.d. 7. Pantoprazole 40 mg p.o. b.i.d. Hold Xarelto. HOSPITAL COURSE: Mr. Moulton is a 76-year-old male with past medical history of coronary artery disease with last stent placed 3 weeks ago as described above who presented to the hospital on 10/03/16 with complaint of lightheadedness. Please see the dictated H and P from Stacey Franco MD, for complete details. In brief, the patient had had stents placed while in [place] after cardiac catheterization for severe chest pain. After that procedure, he developed atrial fibrillation and was discharged to home on aspirin, Brilinta, and Xarelto. This was 3 weeks ago, but approximately 3 days ago, he started having lightheadedness and then noticed that he was having dark tarry stool. In the emergency room, his first hemoglobin was 8.6. Blood pressure was low as 88/39 shortly after arrival. He is not tachycardic, but he is on a beta- claudia. Mr. Moulton did not require blood transfusion. He was seen in consultation by Dr. Latham from Gastroenterology who recommended an upper endoscopy. That procedure found gastritis and duodenitis with no evidence of ongoing bleeding. He suspects that this was related to the multiple blood thinners that the patient was on and recommended that the patient continue on aspirin and Brilinta , but would likely need to go off Xarelto. He also recommended that the patient to have Protonix at 40 mg b.i.d. x10 days and then take it once daily. In the immediate post procedure period, Mr. Moulton was quite confused. Suspected that this was secondary to the medication for the procedure and the patient states a history of same. He is doing quite well today. He has no further confusion. He is eager for discharge to home. He is medically stable. He is ambulating without lightheadedness or dizziness. Blood pressure is 107/ 52, heart rate 63. He is tolerating oral intake well. Mr. Moulton is discharged to home to follow up with Dr. Latham. I will note that he has some pancytopenia that has worsened during the admission. On arrival, he had a platelet count of 72, it is now down to 56. He will be requested to have a CBC on 10/07/16, with this forwarded on to his primary care physician and Dr. Latham. I have instructed the patient clearly that should he have any ongoing lightheadedness or any dark tarry stool or blood in the stool that he should return immediately to the emergency room. Mr. Moulton is medically stable for discharge to home. DISPOSITION: To home. DIET: Heart healthy. ACTIVITY: As tolerated. FOLLOWUP PLAN: 1. Please follow up with Dr. Latham in the next 2 weeks. 2. Please follow up with Dr. Cabrera on 10/10/16 at 1 p.m. TIME SPENT: Approximately 70 minutes was spent on the discharge of this patient , more than half the time was spent with the patient at bedside, reviewing the events leading up to and during this hospitalization, performing the physical examination, and reviewing the plan of care. JUDY DIAL NP CC: Dr. Juliana Cabrera* [id number]/[facility] #: [id number] ABDULLAHI
== END 2016-10-05 15:10 | disposition home or self-care (01) | DRG 378 ==
LOC: ED 13:06 → MEDTELE 15:49
PROVIDERS: ADMIT Internal Medicine; ATTEND Hospitalist
PROC: 0DJ08ZZ Inspection of Upper Intestinal Tract, Via Natural or Artificial Opening Endoscopic (ICD-10-PCS; principal; 2016-10-04)
DX: K92.1 Melena (principal); D62 Acute posthemorrhagic anemia; I48.91 Unspecified atrial fibrillation; D69.6 Thrombocytopenia, unspecified; I25.10 Atherosclerotic heart disease of native coronary artery without angina pectoris; Z95.5 Presence of coronary angioplasty implant and graft; I25.2 Old myocardial infarction; N40.0 Benign prostatic hyperplasia without lower urinary tract symptoms; Z95.1 Presence of aortocoronary bypass graft; R04.0 Epistaxis; Z82.49 Family history of ischemic heart disease and other diseases of the circulatory system; Z80.1 Family history of malignant neoplasm of trachea, bronchus and lung; Z80.0 Family history of malignant neoplasm of digestive organs; K29.70 Gastritis, unspecified, without bleeding; K29.80 Duodenitis without bleeding; Z79.82 Long term (current) use of aspirin; T39.015A Adverse effect of aspirin, initial encounter
CPT/HCPCS: 36415; 80048; 80053; 82272; 83605; 85014; 85018; 85025; 85027; 85610; 85730; 86850; 86900; 86901; 93005; A9270-GY; J2250

== ENCOUNTER 2016-10-08 00:19 | Observation (INO) | payer MEDICARE, BC ==
[2016-10-08 00:49] LABS: Hematocrit 26 % (42-52); Hemoglobin 8.7 g/dl (14.0-18.0); Mean Corpuscular HGB Conc 34 g/dl (31-36); Mean Corpuscular Hemoglobin 34 pg (27-31); Mean Corpuscular Volume 99 fL (80-94); Mean Platelet Volume 9 um3 (7.4-10.4); Red Blood Count 2.58 10^6/ul (4.0-5.4); Red Cell Distribution Width 15 % (10.5-15); White Blood Count 3.7 10^3/ul (3.5-10.8)
[2016-10-08 00:52] LABS: Comments Flag Yes
[2016-10-08 01:05] LABS: Albumin 3.1 g/dL (3.2-5.2); BUN/Creatinine Ratio 12.8 (8-20); Calcium 8.3 mg/dL (8.6-10.3); EGFR African American 100.1 (>60); EGFR Non-African American 77.8 (>60); Globulin 2.3 g/dL (2-4); Potassium 3.5 mmol/L (3.5-5.0); Total Bilirubin 0.8 mg/dL (0.2-1.0); Total Protein 5.4 g/dL (6.4-8.9)
--- NOTE | 2016-10-08 01:05 | ED ---
Shilo Guaman Aidan, scribed for John Snell MD on 10/08/16 at 0051 . HPI Chest Pain - HPI Summary HPI Summary: 76 y/o male presents to the ED with a complaint of episodes of acute, moderate ( 7-8/10), mid sternal CP that occurred earlier today. The first episode occurred just before the patient went to bed. As a result of the CP, he took a SL nitro at 2215, and then a repeat dose at 2345. Though the nitro did alleviate some of his pain, after calling his PCP and being advised to head to the ED, he decided to be safe and come to the hospital. Pt denies any diaphoresis, SOB, nausea, or vomiting. Hx of CAD, a stent placement on 09/09/16, and STEMI on September 09. He was last hospitalized 3 days ago for a GI bleed. Pt is currently on blood thinners. - History of Current Complaint Chief Complaint: EDChestPainROMI Time Seen by Provider: 10/08/16 00:25 Hx Obtained From: Patient, Family/Purchasing Internship Onset/Duration: Started Hours Ago, Still Present Time of Onset: 22:15 - just before 2215 Timing: Intermittent - 2 episodes Initial Severity: Moderate Current Severity: Moderate Pain Intensity: 7 - 7-8/10 Pain Scale Used: 0-10 Numeric Chest Pain Location: Mid Sternal Chest Pain Radiates: No Character: Dull/Aching Aggravating Factor(s): Other: - unknown Alleviating Factor(s): NTG 123 - Pt took 2 doses Associated Signs and Symptoms: Positive: Chest Pain. Negative: Shortness of Breath, Diaphoresis, Nausea, Vomiting Related History: Similar Episode/Dx as: - Hx of CAD, a stent placement on , and STEMI on September 09 - Risk Factors Pulmonary Embolism Risk Factors: Smoking - former smoker TAD Risk Factors: Smoking - former smoker AMI/ACS Risk Factors: Myocardial Infarction, Nitroglycerine Use, Smoking - former smoker - Additional Pertinent History Primary Care Physician: [id number] - Allergy/Home Medications Allergies/Adverse Reactions: Allergies Allergy/AdvReac Type Severity Reaction Status Date / Time No Known Allergies Allergy Verified 10/08/16 00:37 Home Medications: Home Medications [place]-3 Fatty Acids [Fish Oil] 1,000 mg PO DAILY 10/08/16 [History Confirmed ] PMH/Surg Hx/FS Hx/Imm Hx Endocrine/Hematology History: Reports: Hx Unexplained Bleeding - current admission Cardiovascular History: Reports: Hx Coronary Artery Disease, Hx Hypercholesterolemia, Hx Myocardial Infarction History: Reports: Hx Benign Prostatic Hyperplasia Musculoskeletal History: Reports: Hx Back Problems - sciatica Sensory History: Reports: Hx Contacts or Glasses - Reading glasses Denies: Hx Hearing Aid Opthamlomology History: Reports: Hx Contacts or Glasses - Reading glasses Neurological History: Reports: Hx Migraine - Surgical History Surgery Procedure, Year, and Place: appendectomy, right knee arthroscopy Infectious Disease History: No Infectious Disease History: Denies: Traveled Outside the [place] in Last 30 Days - Family History Known Family History: Positive: Hypertension - Social History Occupation: Employed Full-time Lives: Alone Alcohol Use: Daily Alcohol Amount: 1 glass of wine every day Substance Use Type: Reports: None Smoking Status (MU): Former Smoker Length of Time of Smoking/Using Tobacco: 5 years Review of Systems Constitutional: Negative Eyes: Negative ENT: Negative Positive: Chest Pain. Negative: Palpitations Respiratory: Negative Gastrointestinal: Negative Genitourinary: Negative Musculoskeletal: Negative Skin: Negative Neurological: Negative Psychological: Normal All Other Systems Reviewed And Are Negative: Yes Physical Exam Triage Information Reviewed: Yes Vital Signs On Initial Exam: Initial Vitals Temp Pulse Resp BP Pulse Ox 98.1 F 70 20 131/60 99 10/08/16 00:20 10/08/16 00:20 10/08/16 00:20 10/08/16 00:20 10/08/16 00:20 Vital Signs Reviewed: Yes Appearance: Positive: Well-Appearing, Pain Distress - mild discomfort Skin: Positive: Warm, Pale Head/Face: Positive: Normal Head/Face Inspection Eyes: Positive: GWYN ENT: Positive: Hearing grossly normal Neck: Positive: Supple Respiratory/Lung Sounds: Positive: Clear to Auscultation, Breath Sounds Present Cardiovascular: Positive: RRR Abdomen Description: Positive: Nontender, Soft Bowel Sounds: Positive: Present Musculoskeletal: Positive: Strength/ROM Intact Neurological: Positive: Sensory/Motor Intact, Alert, Oriented to Person Place, Time Psychiatric: Positive: Affect/Mood Appropriate Diagnostics - Vital Signs Vital Signs Temp Pulse Resp BP Pulse Ox 10/08/16 00:20 98.1 F 70 20 131/60 99 - Laboratory Lab Results: Lab Results 10/08/16 10/08/16 Range/Units 00:35 00:35 WBC 3.7 (3.5-10.8) 10^3/ul RBC 2.58 L (4.0-5.4) 10^6/ul Hgb 8.7 L (14.0-18.0) g/dl Hct 26 L (42-52) % MCV 99 H (80-94) fL MCH 34 H (27-31) pg MCHC 34 (31-36) g/dl RDW 15 (10.5-15) % Plt Count 59 L (150-450) 10^3/ul MPV 9 (7.4-10.4) um3 Neut % (Auto) 67.7 (38-83) % Lymph % (Auto) 23.8 L (25-47) % [place] % (Auto) 6.4 (1-9) % Eos % (Auto) 1.8 (0-6) % Baso % (Auto) 0.3 (0-2) % Absolute Neuts (auto) 2.5 (1.5-7.7) 10^3/ul Absolute Lymphs (auto) 0.9 L (1.0-4.8) 10^3/ul Absolute Monos (auto) 0.2 (0-0.8) 10^3/ul Absolute Eos (auto) 0.1 (0-0.6) 10^3/ul Absolute Basos (auto) 0 (0-0.2) 10^3/ul Absolute Nucleated RBC 0 10^3/ul Nucleated RBC % 0 Lactic Acid 1.2 (0.5-2.0) mmol/L Result Diagrams: 10/08/16 00:35 10/08/16 00:35 Lab Statement: Any lab studies that have been ordered have been reviewed, and results considered in the medical decision making process. - Radiology CHEST XR Xray Interpretation: No Acute Changes - IMPRESSION: no evidence for acute cardiopulmonary disease/ negative chest xr Radiology Interpretation Completed By: ED Physician - Dr. Snell - EKG EKG 0026 Cardiac Rate: NL - 64 BPM EKG Rhythm: Sinus Rhythm EKG Interpretation: SINUS RHYTHM, NONSPECIFIC T-WAVE ABNORMALITIES, POOR R-WAVE PROGRESSION EKG 0146 Cardiac Rate: NL - 67 BPM EKG Rhythm: Sinus Rhythm EKG Interpretation: EKG UNCHANGED FROM EKG 0026 Chest Pain Course/Dx - Course Course Of Treatment: 76 y/o male presents to the ED with a complaint of episodes of acute, moderate (7-8/10), mid sternal CP that occurred earlier today. The first episode occurred just before the patient went to bed. As a result of the CP, he took a SL nitro at 2215, and then a repeat dose at 2345. His troponin level was found to be 0.06. The patient will be admitted. - Diagnoses Provider Diagnoses: ACS (acute coronary syndrome) - Provider Notifications Discussed Care Of Patient With: Dr. Oconnor (Hospitalist) Time Discussed With Above Provider: 01:37 - Dr. Snell informed Dr. Oconnor of the patient's troponin level and that the patient will need to be admitted Instructed by Provider To: Admit As Inpatient - Critical Care Time Critical Care Time: 30-74 min Discharge - Discharge Plan Condition: Guarded Disposition: ADMITTED TO [facility] The documentation as recorded by the Shilo dalton Aidan accurately reflects the service I personally performed and the decisions made by Alis owusu David, MD.
[2016-10-08 01:08] LABS: Troponin I 0.06 ng/mL (<0.04)
[2016-10-08] MEDS ORDERED: Acetaminophen TAB* 325 MG PO PRN (01:40)
[2016-10-08] MEDS ORDERED: Morphine INJ* 2 MG/ML 1 ML SYRINGE IV PRN (01:40)
[2016-10-08] MEDS ORDERED: Melatonin (NF) 3 MG TAB PO PRN (01:40)
[2016-10-08] MEDS ORDERED: Ondansetron INJ* 2 MG/ML VIAL IV PRN (01:40)
[2016-10-08] MEDS ORDERED: NS 0.9% 1000 ML* 1,000 ML IV SCH (01:45)
[2016-10-08] MEDS ORDERED: Pantoprazole IV* 40 MG IV SCH (02:00)
--- NOTE | 2016-10-08 02:01 | HP ---
H&P (Free Text) History and Physical: PCP: Radha Cabrera MD Cardiology: Julianne Coffman MD Date/Time of Evaluation: 10/08/2016 0145 CC: chest pain HPI: Mr Moulton is a 76YO male HX CAD/3vCABG/ID/stent in [place] 08/2016 on dual anti -platelets, AFIB not on anticoagulation who was admitted to [facility] 10/03 - 2016 for and upper GI hemorrhage 2nd gastritis/duodenitis. He was discharged on aspirin & ticagrelor, but his rivaroxaban was discontinued. Since discharge, he has had multiple episode of non-exertional, non-radiating chest pressure a couple of which were associated with sweating, but no SOB, N/V , or palpitations. Each episode responded quickly and completely to SL nitro. He contacted Dr Coffman's office reporting light-headedness and was advised that should he require 2 SL nitro's for chest pain to come to the ED. Monday night while going to bed he developed 3/10 non-exertional, non-radiating chest pressure without associations which was relieved by nitro and he went to bed only to be awakened at ~2345 with return of the pain this time associated with sweating. Again it was quickly relieved with an SL nitro, but as it was his 2nd he drove to the ED. While in the ED, he got up to use the restroom and developed chest pressure which spontaneously resolved. He reports no missed doses of either aspirin or ticagrelor and continues to see some black stool. ECG is NSR/RBBB rate 64 with brian-lateral ST inversions similar to previous. Troponin is 0.06. CXR is negative. HGB is 8.7 (stable). PMedHx CAD/3vCABG/ID/stent x1 most recent stent x1 in [place] 08/2016 upper GI hemorrhage 2nd gastritis/duodenitis 09/2016 HLD BPH Ambulatory Orders Aspirin EC Low Dose* [Ecotrin EC Low Dose 81 MG*] 81 mg PO DAILY 10/03/16 Atorvastatin* [Lipitor 40 MG*] 40 mg PO DAILY 10/03/16 Metoprolol Tartrate TAB* [Lopressor TAB*] 12.5 mg PO BID 10/03/16 Niacin ER TAB* [Niaspan ER TAB*] 1,000 mg PO QAM 10/03/16 Niacin ER TAB* [Niaspan ER TAB*] 1,000 mg PO QPM 10/03/16 Nitroglycerin TAB 0.4 MG* 0.4 mg SL Q5M PRN 10/03/16 Ticagrelor* [Brilinta 90 MG*] 90 mg PO BID 10/03/16 Pantoprazole TAB (NF) [Protonix TAB (NF)] 40 mg PO BID #40 tab 10/05/16 Allergies No Known Allergies Allergy (Verified 10/08/16 00:37) PSurgHx 3vCABG cardiac stent x3 (last 08/2016) cholecystectomy SocHx: former light smoker w/ <5PYHX, former mild drinker but none currently, no recreational drugs; lives with his ; 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; full code status FamHx: Father: CAD; Mother: passed of colon CA; Brother: CAD; Brother: lung CA ROS: as above, otherwise reviewed and all were negative Constitutional: NAD, normally developed, well-nourished elderly white male appearing younger than his stated age vitals: Vital Signs Temp 36.7 C 10/08/16 00:20 Pulse 70 10/08/16 00:20 Resp 20 10/08/16 00:20 BP 131/60 10/08/16 00:20 Pulse Ox 99 10/08/16 00:20 Intake & Output 10/07/16 10/07/16 10/08/16 11:59 23:59 11:59 Weight 72.575 kg HEENM: atraumatic; sclera/conjunctiva: non-icteric/clear; hearing: clinically intact; oropharynx: clear, mucosa moist Neck: soft tissue: non-tender; thyroid: normal Pulmonary: clear to auscultation bilaterally, good aeration, no accessory muscle use CV: RR/RR, normal S1S2, no carotid bruit, no jugular venous distention, 2+ B DP/ PT, no edema Abdominal: soft, non-distended, non-tender, no rebound/guarding/rigidity, normoactive bowel sounds, no hepatosplenomegaly or masses, no costovertebral angle tenderness Musculoskeletal: general: grossly intact; gait: stable Integumental: normal appearance and texture of exposed skin Psychiatric orientation: AA&O to PPS affect: calm mood: pleasant eye contact: good content: reliable responses: timely insight: good Testing: Lab Results 10/08/16 10/08/16 10/08/16 Range/Units 00:35 00:35 00:35 WBC 3.7 (3.5-10.8) 10^3/ul RBC 2.58 L (4.0-5.4) 10^6/ul Hgb 8.7 L (14.0-18.0) g/dl Hct 26 L (42-52) % MCV 99 H (80-94) fL MCH 34 H (27-31) pg MCHC 34 (31-36) g/dl RDW 15 (10.5-15) % Plt Count 59 L (150-450) 10^3/ul MPV 9 (7.4-10.4) um3 Neut % (Auto) 67.7 (38-83) % Lymph % (Auto) 23.8 L (25-47) % [place] % (Auto) 6.4 (1-9) % Eos % (Auto) 1.8 (0-6) % Baso % (Auto) 0.3 (0-2) % Absolute Neuts (auto) 2.5 (1.5-7.7) 10^3/ul Absolute Lymphs (auto) 0.9 L (1.0-4.8) 10^3/ul Absolute Monos (auto) 0.2 (0-0.8) 10^3/ul Absolute Eos (auto) 0.1 (0-0.6) 10^3/ul Absolute Basos (auto) 0 (0-0.2) 10^3/ul Absolute Nucleated RBC 0 10^3/ul Nucleated RBC % 0 Sodium 139 (133-145) mmol/L Potassium 3.5 (3.5-5.0) mmol/L Chloride 108 (101-111) mmol/L Carbon Dioxide 24 (22-32) mmol/L Anion Gap 7 (2-11) mmol/L BUN 12 (6-24) mg/dL Creatinine 0.94 (0.67-1.17) mg/dL Est GFR ( Amer) 100.1 (>60) Est GFR (Non-Af Amer) 77.8 (>60) BUN/Creatinine Ratio 12.8 (8-20) Glucose 120 H (70-100) mg/dL Lactic Acid 1.2 (0.5-2.0) mmol/L Calcium 8.3 L (8.6-10.3) mg/dL Total Bilirubin 0.80 (0.2-1.0) mg/dL AST 43 H (13-39) U/L ALT 40 (7-52) U/L Alkaline Phosphatase 69 (34-104) U/L Troponin I 0.06 H* (<0.04) ng/mL Total Protein 5.4 L (6.4-8.9) g/dL Albumin 3.1 L (3.2-5.2) g/dL Globulin 2.3 (2-4) g/dL Albumin/Globulin Ratio 1.3 (1-3) ECG, personally reviewed: NSR, RBBB, rate 64, brian-lateral ST depressions similar to 10/04/2016 CXR, personally reviewed: no acute process Impression: 76M w/ extensive cardiac HX including ID/stent x1 in [place] 08/2016 presents w/ chest pain for r/o ACS DIAGNOSIS & PLAN Primary unstable angina : aspirin : ticagrelor : give additional 12.5mg metoprolol IR tonight : will hold anti-coagulation as troponin is indeterminate, ECG is unchanged, & recent GI bleed : nitro patch 0.1 : supplemental oxygen : consider cardiology consult in AM pending above results : consider transfusing to bring HGB >10 tomorrow pending cardiology opinion : telemetry : trend troponin : supportive care anemia : stable : consider transfusion as above Secondary BPH : continue meds once reconciled Admission Rational: CDU observation for r/o ACS DVTp: SCDs Code Status: full HCP:
[2016-10-08] MEDS ORDERED: Nitroglycerin 0.1 mg/Hr PATCH* (2.5 MG) TRANSDERM SCH (03:00)
[2016-10-08] MEDS: Metoprolol Tartrate TAB* 25 MG PO SCH ×2 (04:21→08:49)
--- NOTE | 2016-10-08 07:46 | RAD ---
HISTORY: Chest pain COMPARISONS: January 19, 2006 VIEWS: 2: Frontal dual-energy and lateral views of the chest. FINDINGS: CARDIOMEDIASTINAL SILHOUETTE: The cardiomediastinal silhouette is normal. KAREEM: The kareem are normal. PLEURA: The costophrenic angles are sharp. No pleural abnormalities are noted. LUNG PARENCHYMA: The lungs are clear. ABDOMEN: The upper abdomen is clear. There is no subphrenic gas. BONES AND SOFT TISSUES: The patient is status post median sternotomy. Surgical clips are noted in the mediastinum. OTHER: None. IMPRESSION: NO ACTIVE CARDIOPULMONARY DISEASE.
[2016-10-08] MEDS: Atorvastatin* 40 MG TAB PO SCH (08:48)
[2016-10-08] MEDS: Niacin ER TAB* 500 MG PO SCH (08:48)
[2016-10-08] MEDS: Omeprazole CAP* 20 MG PO SCH ×2 (08:48→15:45)
[2016-10-08] MEDS: Aspirin EC Low Dose* 81 MG TAB.EC PO SCH (08:48)
[2016-10-08] MEDS: Ticagrelor* 90 MG TAB PO SCH ×2 (08:49→20:02)
[2016-10-08] MEDS ORDERED: Docusate CAP* 100 MG PO SCH (09:00)
--- NOTE | 2016-10-08 13:31 | PN ---
Subjective Date of Service: 10/08/16 Interval History: He still has pain when he lays down at bedtime. No pain while walking. No new c/o. Objective Active Medications: Acetaminophen (Tylenol Tab*) 650 mg PO Q6H PRN PRN Reason: FEVER/PAIN Amlodipine Besylate (Norvasc Tab*) 2.5 mg PO DAILY [facility] Aspirin (Aspirin Ec Low Dose*) 81 mg PO DAILY [facility] Last Admin: 10/08/16 08:48 Dose: 81 mg Atorvastatin Calcium (Lipitor*) 40 mg PO DAILY [facility] Last Admin: 10/08/16 08:48 Dose: 40 mg Morphine Sulfate (Morphine Inj (Syringe)*) 2 mg IV Q4H PRN PRN Reason: PAIN - MILD Niacin (Niaspan Er Tab*) 1,000 mg PO QAM [facility] Last Admin: 10/08/16 08:48 Dose: 1,000 mg Niacin (Niaspan Er Tab*) 1,000 mg PO QPM [facility] Omeprazole (Prilosec Cap*) 20 mg PO BID [facility] Last Admin: 10/08/16 08:48 Dose: 20 mg Ondansetron HCl (Zofran Inj*) 4 mg IV Q6H PRN PRN Reason: NAUSEA Sucralfate (Carafate*) 1 gm PO TID [facility] Ticagrelor (Brilinta*) 90 mg PO BID [facility] Last Admin: 10/08/16 08:49 Dose: 90 mg Vital Signs 10/08/16 10/08/16 10/08/16 02:00 02:30 02:48 Temperature 98 F Pulse Rate 68 72 69 Respiratory 18 24 20 Rate Blood Pressure 129/115 126/108 119/53 (mmHg) O2 Sat by Pulse 99 99 99 Oximetry 10/08/16 10/08/16 07:42 12:10 Temperature 98.3 F 98.5 F Pulse Rate 64 61 Respiratory 16 16 Rate Blood Pressure 104/57 109/56 (mmHg) O2 Sat by Pulse 98 100 Oximetry Oxygen Devices in Use Now: None Appearance: Alert, sitting on the edge of his bed. In good spirits. Looks comfortable. Eyes: No Scleral Icterus Ears/Nose/Mouth/Throat: Clear Oropharnyx, Mucous Membranes Moist Neck: NL Appearance and Movements; NL JVP, No Thyroid Enlargement, Masses Respiratory: Symmetrical Chest Expansion and Respiratory Effort, Clear to Auscultation, Clear to Percussion Cardiovascular: NL Sounds; No Murmurs; No JVD, RRR, No Edema, - Extremities: No Edema, No Clubbing, Cyanosis, - Skin: No Rash or Ulcers, No Nodules or Sclerosis, - Neurological: Alert and Oriented x 3, NL Sensation Result Diagrams: 10/08/16 00:35 10/08/16 00:35 Additional Lab and Data: Lab Results 10/08/16 10/08/16 Range/Units 00:35 00:35 WBC 3.7 (3.5-10.8) 10^3/ul RBC 2.58 L (4.0-5.4) 10^6/ul Hgb 8.7 L (14.0-18.0) g/dl Hct 26 L (42-52) % MCV 99 H (80-94) fL MCH 34 H (27-31) pg MCHC 34 (31-36) g/dl RDW 15 (10.5-15) % Plt Count 59 L (150-450) 10^3/ul MPV 9 (7.4-10.4) um3 Neut % (Auto) 67.7 (38-83) % Lymph % (Auto) 23.8 L (25-47) % [place] % (Auto) 6.4 (1-9) % Eos % (Auto) 1.8 (0-6) % Baso % (Auto) 0.3 (0-2) % Absolute Neuts (auto) 2.5 (1.5-7.7) 10^3/ul Absolute Lymphs (auto) 0.9 L (1.0-4.8) 10^3/ul Absolute Monos (auto) 0.2 (0-0.8) 10^3/ul Absolute Eos (auto) 0.1 (0-0.6) 10^3/ul Absolute Basos (auto) 0 (0-0.2) 10^3/ul Absolute Nucleated RBC 0 10^3/ul Nucleated RBC % 0 Lactic Acid 1.2 (0.5-2.0) mmol/L Assess/Plan/Problems-Billing Assessment: - Patient Problems (1) CAD (coronary artery disease) Current Visit: No Status: Acute Code(s): I25.10 - ATHSCL HEART DISEASE OF [place] CORONARY ARTERY W/O ANG PCTRS SNOMED Code(s): 60039714 Comment: Continue ASA, brillinta, niacin, lipitor. Stop metoprolol to avoid hypotension when amlodipine started. Discussed with Dr. Rios. If his ECG has changed significantly from [place], should have stress test. (2) Duodenitis Current Visit: Yes Status: Acute Code(s): K29.80 - DUODENITIS WITHOUT BLEEDING SNOMED Code(s): 06178779 Comment: Also gastritis seen on EGD 10/04/16. Continue bid PPI. Add sucralfate. Pt advised to raise the head of his bed 4-6 inches. (3) Anemia Current Visit: Yes Status: Acute Code(s): D64.9 - ANEMIA, UNSPECIFIED SNOMED Code(s): 765761365 Comment: Improved since low of 7.0 on 10/04/16. Add on ferritin requested. (4) Atrial fibrillation Current Visit: No Status: Acute Code(s): I48.91 - UNSPECIFIED ATRIAL FIBRILLATION SNOMED Code(s): 15885953 Comment: Pt has a h/o afib following his recent AK. He had been started on xarelto though this is now discontinued due to his GI bleed. He is currently in NSR.
[2016-10-08] MEDS: Sucralfate TAB* 1 GM PO SCH ×2 (13:39→20:02)
[2016-10-08] MEDS ORDERED: Niacin ER TAB* 500 MG PO SCH (18:00)
--- NOTE | 2016-10-08 20:27 | CONS ---
CC: Hospitalist Service; Dr. Cabrera; Dr. Zander Coffman CONSULTATION REPORT: DATE OF CONSULT: 10/08/16 REASON FOR CONSULT: Chest pain and complex coronary disease. CHIEF COMPLAINT: Recurrent substernal chest pain. HISTORY OF PRESENT ILLNESS: Mr. Moulton is a 76-year-old gentleman, followed by my partner, Dr. Zander Coffman, for coronary artery disease. He was bypassed in 1986 and in August of this year, presented in [place], [place], with a non- STEMI and underwent drug-eluting stent to one of his saphenous vein grafts. He has extensive complex [place] coronary disease and multiple occluded grafts. The patient's hospital course in [place] was complicated by atrial fibrillation and he was discharged on triple anticoagulation with aspirin 81 mg a day, Brilinta 90 mg b.i.d., Xarelto 20 mg a day as well as amiodarone 200 mg a day, atorvastatin 40 mg a day, Niaspan 3 g a day, Toprol 12.5 mg b.i.d., lisinopril 2.5 mg a day. The patient then presented to [facility] on October 03 with an upper GI bleed. Endoscopy was performed which showed gastritis and duodenitis. His Xarelto was stopped. Proton pump inhibitors were initiated and he felt well on discharge to home on the . The patient had several episodes of chest pain, however, at home. He admits every single one of these was at rest, lying down. He took multiple nitroglycerin tablets for these and on the advice of our office when he had felt he needed to take a couple in a row, he presented to the emergency room last night. The patient had been walking upstairs at home and this did not precipitate the substernal chest tightness, just shortness of breath. In the emergency room, the patient had one of his typical episodes and he said they were able to get an EKG, but only, as it was starting to clear spontaneously. Looking at his admission medications, nitroglycerin patch was added to his outpatient medication regimen. Overnight while being in the hospital, he has not had recurrent chest pain other than that in the ED. He does feel this pain is his typical angina, but admits that he has a history of reflux as well and he said before the stenting where he would intermittently have similar symptoms, they would sometimes clear with antacids and sometimes are not. PAST MEDICAL HISTORY: 1. Coronary artery disease: CABG in 1996, ESTRELLA to LAD, saphenous vein graft to D1, saphenous vein graft to the PDA. 2. PTCA, 06/01/95, to the ramus. 3. Cath, 09/09/16, in [place], LAD occluded 100%, circumflex 30% occlusion, OM1 30% occlusion, OM2 40% occlusion, ramus clear, right coronary artery 100% occlusion, ESTRELLA to the LAD atretic, saphenous vein graft to the right coronary artery occluded (chronic), saphenous vein graft to D1 and distal LAD fresh occlusion, status post stenting to the saphenous vein graft (Promus drug- eluting stent). 4. Hypertension. 5. Paroxysmal atrial fibrillation. 6. Dyslipidemia. 7. Benign prostatic hypertrophy. MEDICATIONS: Inpatient medications include: 1. Tylenol p.r.n. 2. Aspirin 81 mg a day. 3. Lipitor 40 mg a day. 4. Colace p.r.n. 5. Melatonin p.r.n. sleep. 6. Toprol-XL 12.5 mg b.i.d. 7. Morphine p.r.n. 8. Niaspan ER 3 g a day. 9. Prilosec 20 mg b.i.d. 10. Zofran p.r.n. 11. Sodium chloride. 12. Brilinta 90 mg b.i.d. 13. Nitroglycerin patch had been put on 4 in the morning 2.5 mg. ALLERGIES: The patient has no known medication allergies. FAMILY HISTORY: Strongly positive for early atherosclerotic heart disease with his father and brother having had bypass, a brother with lung cancer, his mother with colon cancer. SOCIAL HISTORY: The patient is with supportive . 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 Drinks a glass of wine a day. Smoked only 5 years in his 20s. REVIEW OF SYSTEMS: Negative for orthopnea, PND. Negative for associated diaphoresis, nausea, or shortness of breath with the pain symptoms. No recent infectious symptoms. Prior to going to [place], he was doing the elliptical for 3 miles a day, where he would feel winded at the end, but no angina. All other review of systems unremarkable. PHYSICAL EXAM: The patient is 6 feet, weighs 167 pounds with a BMI of 23. Blood pressure 104/57, pulse of 64 and regular, respiratory rate is 16, oxygen saturation on room air 98%, he is afebrile at 98.3. General Appearance: A pale -appearing older gentleman, lying at 30 degrees, appears comfortable. Psychologically calm, cooperative, pleasant. Neurologically awake, alert, oriented to place, person, and time. Cranial nerves II to XII are intact. Grossly normal sensory and motor function in the upper and lower extremities and normal gait. Skin: Pale, consistent with his anemia. Warm, dry. No cyanosis or rashes appreciated. HEENT: Pupils are equal and round. Mucous membranes are moist. Neck: Without increased JVP appreciated. Good carotid pulses. No audible bruits. Respirations: Had few crackles in the bases, but cleared with coughing. No wheezing or rhonchi. Coronary: S1 and S2 regular, distant. No murmurs or rubs appreciated. Abdomen: Flat. No epigastric discomfort. No chest wall discomfort. No hepatosplenomegaly or masses. No abdominal bruits heard. Lower extremities are free of edema. Sequential stockings on. DIAGNOSTIC STUDIES/LAB DATA: White count 3.7, hemoglobin 8.7, hematocrit 26, and platelets 59 (hematocrit was 23 on October 05). Sodium 139, potassium 3.5, chloride 108, bicarb 24, glucose 120, BUN 12, creatinine 0.97. ALT of 40, AST mildly elevated at 43 (increased from 24 on October 03). Troponin #1 0.06, troponin #2 0.06, troponin #3 0.06, troponins not checked on recent GI admission. EKG on admission close to midnight shows normal sinus rhythm, 64 beats a minute , QRS axis of +90 with normal AV and IV conduction times. He has an R-prime in V1 consistent with an incomplete right bundle branch block. Poor R-wave progression across all the precordial leads suggestive of an old anterior myocardial infarction and he has inverted T waves across the precordial leads. EKG at 7 this morning shows sinus rhythm, 61 beats a minute, mild ST elevation in the inferior leads and he continues to have poor R-wave progression and inverted T waves across the precordial leads. When this was compared to the EKG from 09/23/16 in the office, the T-wave inversions have improved in terms of depth and width and the inferior STs were noted. These were all new compared with his 2016 ECGs, where he had normal R-wave progression and upright T waves and STs in the inferior leads appeared within limits of normal. His echocardiogram done in [place], 09/08/16, showed an ejection fraction of 50% to 55% with apical hypokinesis. He had mild mitral insufficiency, moderate tricuspid insufficiency, and mild elevation in PA pressure. SUMMARY: Mr. Moulton is a 76-year-old gentleman with longstanding extensive atherosclerotic heart disease a month status post acute VA with drug-eluting stent to the saphenous vein graft supplying the distal LAD. This was complicated by paroxysmal atrial fibrillation. He presented with a GI bleed last week, on triple anticoagulation related to gastric and duodenal inflammation and is now presenting with substernal chest discomfort, has angina equivalent while lying down and at rest, but not with exertion. He is anemic. The chest pain has a differential of reflux versus angina. I am more suspicious that this is in fact a reflux as it is not occurring with exertion and only at rest, lying down with what sounds like an antigravity trigger or trigger from gravity. Mr. Moulton, however, is at increased risk for developing angina now that he would not have been prior to his GI bleed as he is dependent on collateral flow to the regions with occluded vein grafts and he has branch-vessel disease described in his cardiac catheterization that was not amenable to intervention. His significant anemia could certainly lead to demand ischemia as well. I propose that Mr. Moulton be treated for gastritis with consideration of agents such as sucralfate or other topical agents in addition to the proton pump inhibitor. As he is improving with nitrates and is not on a chronic vasodilating agent, I would consider adding amlodipine or long-acting nitrates to his current regimen. I would continue Mr. Moulton on his aspirin and Brilinta as his stool seemed to be normalizing and he does not appear to be actively bleeding based on history or labs. At this point, I am not recommending a transfusion, but we can liberalize his activity, encourage him to walk on the floor on the telemetry, verify that his symptoms are in fact related to rest and not exertion. We do not know what the patient's ECGs were in [place], copies were not forwarded to our office. I wanted to see if the deep T-wave inversions and inferior ST changes were noted on these ECGs or if these findings are in fact new postdischarge. If these findings are new, it would increase the chance of that he is undergoing stent occlusion, but right now I have a low suspicion of this. I did contact the [facility] window glazier to make him aware of the patient's history in case he destabilizes. Tentatively, if he clinically improves with the above minor adjustments in medications, I would like to do a symptom-limited treadmill stress test on his medications. Troponins were not obtained on admission to his GI bleed. I think it is too far out to be coming down from his [facility] over a month ago (I could not locate troponin levels from this admission on the documents we have), but it is possible that with the GI bleed, he bumped his trops mildly and that these have come down or that this the tail, but I cannot prove this. The fact that they are low and stable, however, is reassuring. Additional recommendations will be made pending the patient's clinical course and response to the above measures. [id number]/[facility] #: [id number] [facility]
[2016-10-08] MEDS ORDERED: Nitro Patch/OINT Remove SCH (21:00)
[2016-10-09] MEDS: Omeprazole CAP* 20 MG PO SCH (08:03)
[2016-10-09] MEDS: Niacin ER TAB* 500 MG PO SCH (08:05)
[2016-10-09] MEDS: Aspirin EC Low Dose* 81 MG TAB.EC PO SCH (08:05)
[2016-10-09] MEDS: Atorvastatin* 40 MG TAB PO SCH (08:05)
[2016-10-09] MEDS: Sucralfate TAB* 1 GM PO SCH (08:05)
[2016-10-09] MEDS: Ticagrelor* 90 MG TAB PO SCH (08:05)
[2016-10-09] MEDS ORDERED: amLODIPine TAB* 5 MG PO SCH (09:00)
--- NOTE | 2016-10-09 09:20 | PN ---
Subjective Date of Service: 10/09/16 - cc: chest pain. Interval History: No further chest/SS chest discomfort. Feels good on current medications, walking. No c/o walking or lying down. Medications Active Medications: Acetaminophen (Tylenol Tab*) 650 mg PO Q6H PRN PRN Reason: FEVER/PAIN Amlodipine Besylate (Norvasc Tab*) 2.5 mg PO DAILY [facility] [place] Last Admin: 10/09/16 08:04 Dose: 2.5 mg Aspirin (Aspirin Ec Low Dose*) 81 mg PO DAILY [facility] [place] Last Admin: 10/09/16 08:05 Dose: 81 mg Atorvastatin Calcium (Lipitor*) 40 mg PO DAILY [facility] [place] Last Admin: 10/09/16 08:05 Dose: 40 mg Morphine Sulfate (Morphine Inj (Syringe)*) 2 mg IV Q4H PRN PRN Reason: PAIN - MILD Niacin (Niaspan Er Tab*) 1,000 mg PO QAM [facility] [place] Last Admin: 10/09/16 08:05 Dose: 1,000 mg Niacin (Niaspan Er Tab*) 1,000 mg PO QPM [facility] [place] Last Admin: 10/08/16 17:45 Dose: 1,000 mg Omeprazole (Prilosec Cap*) 20 mg PO BID AC [facility] [place] Last Admin: 10/09/16 08:03 Dose: 20 mg Ondansetron HCl (Zofran Inj*) 4 mg IV Q6H PRN PRN Reason: NAUSEA Sucralfate (Carafate*) 1 gm PO TID [facility] [place] Last Admin: 10/09/16 08:05 Dose: 1 gm Ticagrelor (Brilinta*) 90 mg PO BID [facility] [place] Last Admin: 10/09/16 08:05 Dose: 90 mg Objective Vital Signs: Temp Pulse Resp BP Pulse Ox 98.3 F 56 16 110/63 100 10/09/16 03:56 10/09/16 03:56 10/09/16 03:56 10/09/16 03:56 10/09/16 03:56 Oxygen Devices in Use Now: None Appearance: pale older gentleman in no distress. Eyes: No Scleral Icterus, PERRLA Ears/Nose/Mouth/Throat: Clear Oropharnyx, Mucous Membranes Moist Neck: NL Appearance and Movements; NL JVP, No Thyroid Enlargement, Masses Respiratory: Symmetrical Chest Expansion and Respiratory Effort, Clear to Auscultation Cardiovascular: RRR - 2/6 systolic murmer apex, suggestive of MR. Abdominal: NL Sounds; No Tenderness; No Distention, No Hepatosplenomegaly Extremities: No Edema Skin: No Rash or Ulcers Neurological: Alert and Oriented x 3, NL Gait, NL Muscle Strength and Tone Lines/Tubes/Other Access: Clean, Dry and Intact Peripheral IV Laboratory Results: Total Bilirubin 0.80 mg/dL (0.2-1.0) 10/08/16 00:35 AST 43 U/L (13-39) H 10/08/16 00:35 ALT 40 U/L (7-52) 10/08/16 00:35 Alkaline Phosphatase 69 U/L (34-104) 10/08/16 00:35 Total Protein 5.4 g/dL (6.4-8.9) L 10/08/16 00:35 Albumin 3.1 g/dL (3.2-5.2) L 10/08/16 00:35 Globulin 2.3 g/dL (2-4) 10/08/16 00:35 Albumin/Globulin Ratio 1.3 (1-3) 10/08/16 00:35 EKG Data: pending Assessment/Plan 76 yo male admitted for SS chest discomfort lying down/rest. Distant CABG, recent NSTEMI and stenting of SVG complicated by afib, then by GI bleed on triple anticoagulant therapy, found to have gastritis and duodenitis. Anemic but stable HCT on omeprazole and off NOAC, on ASA and Brillinta. Points of Discussion: Chest pain: I am most suspicious of GI pain as occured at rest and not with exertion. Resolved with addition of sucralfate and addition of amlodipine. Plan: Check ECG today, if stable or improved ST/T waves d/c to home on current medications. Pt should call cardiology office [phone] tomorrow to arrange outpatient f/u ( office visit, cardiac rehab and TM stress/stress echo). The patient has an office appt with Dr Yeison NGUYỄN tomorrow which he should keep. The patient had a lot of questions regarding diet, activity, and wondered if he should get re CABG. Discussed in depth.
[2016-10-09 10:33] VITALS: BP 107/44
[2016-10-09 11:15] LABS: TSH (Thyroid Stimulating Horm) 6.74 mcIU/mL (0.34-5.60)
--- NOTE | 2016-10-09 11:16 | DCNOTE ---
Subjective Date of Service: 10/09/16 Interval History: Feels much better, no more chest pain, walks in halls well. No new c/o. Objective Active Medications: Acetaminophen (Tylenol Tab*) 650 mg PO Q6H PRN PRN Reason: FEVER/PAIN Amlodipine Besylate (Norvasc Tab*) 2.5 mg PO DAILY [facility] Last Admin: 10/09/16 08:04 Dose: 2.5 mg Aspirin (Aspirin Ec Low Dose*) 81 mg PO DAILY [facility] Last Admin: 10/09/16 08:05 Dose: 81 mg Atorvastatin Calcium (Lipitor*) 40 mg PO DAILY [facility] Last Admin: 10/09/16 08:05 Dose: 40 mg Morphine Sulfate (Morphine Inj (Syringe)*) 2 mg IV Q4H PRN PRN Reason: PAIN - MILD Niacin (Niaspan Er Tab*) 1,000 mg PO QAM [facility] Last Admin: 10/09/16 08:05 Dose: 1,000 mg Niacin (Niaspan Er Tab*) 1,000 mg PO QPM [facility] Last Admin: 10/08/16 17:45 Dose: 1,000 mg Omeprazole (Prilosec Cap*) 20 mg PO BID AC [facility] Last Admin: 10/09/16 08:03 Dose: 20 mg Ondansetron HCl (Zofran Inj*) 4 mg IV Q6H PRN PRN Reason: NAUSEA Sucralfate (Carafate*) 1 gm PO TID [facility] Last Admin: 10/09/16 08:05 Dose: 1 gm Ticagrelor (Brilinta*) 90 mg PO BID [facility] Last Admin: 10/09/16 08:05 Dose: 90 mg Vital Signs 10/08/16 10/08/16 10/08/16 15:26 19:19 20:00 Temperature 98.0 F 98.2 F Pulse Rate 60 58 Respiratory 18 16 16 Rate Blood Pressure 110/46 94/43 (mmHg) O2 Sat by Pulse 100 100 Oximetry 10/08/16 10/09/16 10/09/16 23:13 03:56 07:14 Temperature 98.3 F 98.3 F 98.5 F Pulse Rate 69 56 61 Respiratory 16 16 18 Rate Blood Pressure 106/51 110/63 107/44 (mmHg) O2 Sat by Pulse 99 100 99 Oximetry 10/09/16 08:00 Temperature Pulse Rate Respiratory 16 Rate Blood Pressure (mmHg) O2 Sat by Pulse Oximetry Oxygen Devices in Use Now: None Appearance: Alert, partly up in bed. In good spirits. Looks comfortable. Eyes: No Scleral Icterus Ears/Nose/Mouth/Throat: Clear Oropharnyx, Mucous Membranes Moist Respiratory: Symmetrical Chest Expansion and Respiratory Effort, Clear to Auscultation, Clear to Percussion Cardiovascular: NL Sounds; No Murmurs; No JVD, RRR, No Edema, - Extremities: No Edema, No Clubbing, Cyanosis, - Skin: No Rash or Ulcers, No Nodules or Sclerosis, - Neurological: Alert and Oriented x 3, NL Sensation Result Diagrams: 10/08/16 00:35 10/08/16 00:35 Additional Lab and Data: Lab Results 10/08/16 10/08/16 Range/Units 00:35 00:35 WBC 3.7 (3.5-10.8) 10^3/ul RBC 2.58 L (4.0-5.4) 10^6/ul Hgb 8.7 L (14.0-18.0) g/dl Hct 26 L (42-52) % MCV 99 H (80-94) fL MCH 34 H (27-31) pg MCHC 34 (31-36) g/dl RDW 15 (10.5-15) % Plt Count 59 L (150-450) 10^3/ul MPV 9 (7.4-10.4) um3 Neut % (Auto) 67.7 (38-83) % Lymph % (Auto) 23.8 L (25-47) % [place] % (Auto) 6.4 (1-9) % Eos % (Auto) 1.8 (0-6) % Baso % (Auto) 0.3 (0-2) % Absolute Neuts (auto) 2.5 (1.5-7.7) 10^3/ul Absolute Lymphs (auto) 0.9 L (1.0-4.8) 10^3/ul Absolute Monos (auto) 0.2 (0-0.8) 10^3/ul Absolute Eos (auto) 0.1 (0-0.6) 10^3/ul Absolute Basos (auto) 0 (0-0.2) 10^3/ul Absolute Nucleated RBC 0 10^3/ul Nucleated RBC % 0 Lactic Acid 1.2 (0.5-2.0) mmol/L Assess/Plan/Problems-Billing Assessment: - Patient Problems (1) CAD (coronary artery disease) Current Visit: No Status: Acute Code(s): I25.10 - ATHSCL HEART DISEASE OF [place] CORONARY ARTERY W/O ANG PCTRS SNOMED Code(s): 10504758 Comment: Continue ASA, brillinta, niacin, lipitor. Stop metoprolol to avoid hypotension when amlodipine started. ECG this AM pending. Discussed with Dr. Rios 10/09. (2) Duodenitis Current Visit: Yes Status: Acute Code(s): K29.80 - DUODENITIS WITHOUT BLEEDING SNOMED Code(s): 56388635 Comment: Also gastritis seen on EGD 10/04/16. Continue bid PPI, sucralfate. Pt advised to raise the head of his bed 4-6 inches. (3) Anemia Current Visit: Yes Status: Acute Code(s): D64.9 - ANEMIA, UNSPECIFIED SNOMED Code(s): 096920641 Comment: Improved since low of 7.0 on 10/04/16. Add on ferritin 66. (4) Atrial fibrillation Current Visit: No Status: Acute Code(s): I48.91 - UNSPECIFIED ATRIAL FIBRILLATION SNOMED Code(s): 84396285 Comment: Pt has a h/o afib following his recent [place]. He had been started on xarelto though this is now discontinued due to his GI bleed. He is currently in NSR. (5) Thrombocytopenia Current Visit: Yes Status: Acute Code(s): D69.6 - THROMBOCYTOPENIA, UNSPECIFIED SNOMED Code(s): 335486038 Comment: Discussed with Dr. Rubi. Referral to [facility], should be seen in a few days. Status and Disposition: Discharge now. Fup Dr. Cabrera, [facility] Coffman.
--- NOTE | 2016-10-10 03:40 | DS ---
Amended report to enter date of admission. DISCHARGE SUMMARY: DATE OF ADMISSION: 10/08/16 DATE OF DISCHARGE: 10/09/16 HOSPITAL COURSE: The patient presented to the emergency room complaining of chest pain. Generally, the pain occurred when he laid down to go to bed at night. It rarely if ever occurred during exertion. There was some sweating, but no other symptoms with this. He was given a prescription for nitroglycerin and told to come to the emergency room if he needed to take 2. He had taken one several times before he came to the emergency room. He had some chest pressure in the emergency room as well, but this resolved within a few minutes. He has not missed his aspirin or ticagrelor doses. Rest of history is detailed in admission note. The patient was admitted to a telemetry unit. He had 3 troponins, all of which were exactly 0.06. He had no further chest pain in the hospital. He was started on amlodipine and sucralfate in addition to his usual medications. Metoprolol was stopped at the same time. The patient's hemoglobin and hematocrit were slightly higher than when he was discharged from the hospital. Recently, his hemoglobin was 8.7, hematocrit 26. His platelet count was 59,000 on 10/08/16. The highest value on his last admission was 72,000 and the lowest 56,000. There have really been no significant changes in his platelet count. After starting the amlodipine and sucralfate, the patient seemed better. He said he was completely pain free. He was walking in the halls freely without any problems. He had a good night last night. FINAL DIAGNOSES: 1. Coronary artery disease. 2. Duodenitis from gastritis. 3. Anemia and thrombocytopenia. 4. Paroxysmal atrial fibrillation. DISCHARGE MEDICATIONS: 1. Acetaminophen 650 mg every 6 hours p.r.n. 2. Sucralfate 1 g t.i.d. 3. Amlodipine 2.5 mg daily. 4. Niacin ER 1000 mg every evening and 1000 mg every morning. 5. Atorvastatin 40 mg daily. 6. Nitroglycerin 0.4 mg sublingual every 5 minutes p.r.n. 7. Ticagrelor 90 mg b.i.d. 8. Aspirin 81 mg daily. 9. Pantoprazole 40 mg b.i.d. CC: Dr. Cabrera; Dr. Coffman; Dr. Rubi* [id number]/[facility] #: [id number] [facility]
== END 2016-10-09 12:50 | disposition home or self-care (01) ==
LOC: ED 00:19 → MEDTELE 01:37 → OBSVTOIN 13:03 → INTOOBSV 13:03
PROVIDERS: ADMIT Hospitalist; ATTEND Internal Medicine
DX: I25.110 Atherosclerotic heart disease of native coronary artery with unstable angina pectoris (principal); D64.9 Anemia, unspecified; K29.80 Duodenitis without bleeding; D69.6 Thrombocytopenia, unspecified; I48.91 Unspecified atrial fibrillation; I25.2 Old myocardial infarction; Z95.1 Presence of aortocoronary bypass graft; N40.0 Benign prostatic hyperplasia without lower urinary tract symptoms; I45.10 Unspecified right bundle-branch block; Z79.899 Other long term (current) drug therapy; Z79.82 Long term (current) use of aspirin; Z87.891 Personal history of nicotine dependence; R94.31 Abnormal electrocardiogram [ECG] [EKG]
CPT/HCPCS: 36415; 71020; 80053; 82728; 83605; 84443; 84484; 85025; 93005; 96360; 96361; 99291; A9270-GY; G0378

== ENCOUNTER 2020-10-03 14:15 | Observation (INO) ==
[2020-10-03] MEDS ORDERED: NS 0.9% 1000 ml BAG 1,000 ML IV ONE (14:18)
[2020-10-03 14:55] LABS: ABS Eosinophils 0.1 10^3/ul (0-0.6); ABS Monocytes 0.5 10^3/ul (0-0.8); ABS Neutrophils 7.2 10^3/ul (1.5-7.7); Eosinophil % 0.7 %; Hematocrit 39 % (42-52); Hemoglobin 13.8 g/dL (14.0-18.0); Lymphocyte % 11.9 %; Mean Corpuscular HGB Conc 35 g/dL (31-36); Mean Corpuscular Hemoglobin 33 pg (27-31); Mean Corpuscular Volume 93 fL (80-94); Mean Platelet Volume 9.4 fL (7.4-10.4); Platelet Count 125 10^3/uL (150-450); Red Blood Count 4.19 10^6 /uL (4.18-5.48); Red Cell Distribution Width 14 % (10-15); White Blood Count 8.8 10^3/uL (3.5-10.8)
[2020-10-03 15:04] LABS: Activated Partial Thrombo Time 22.6 seconds (26.0-38.0); INR 0.98 (0.82-1.09)
[2020-10-03 15:19] LABS: Troponin I 0.01 ng/mL (<0.03)
[2020-10-03 15:56] LABS: Albumin 3.9 g/dL (3.2-5.2); Albumin/Globulin Ratio 1.6 (1-3); BUN/Creatinine Ratio 14.7 (8-20); Calcium 9.4 mg/dL (8.6-10.3); EGFR African American 84.8 (>60); EGFR Non-African American 70.1 (>60); Globulin 2.5 g/dL (2-4); Total Bilirubin 1.1 mg/dL (0.2-1.0); Total Protein 6.4 g/dL (6.4-8.9)
[2020-10-03] MEDS ORDERED: Iohexol 350 (CONTRAST) 500 ML MDV IV ONE (15:58)
[2020-10-03 16:24] LABS: Potassium 4.2 mmol/L (3.5-5.0)
[2020-10-03 16:56] LABS: Urine Appearance Clear; Urine Bilirubin Negative (Negative); Urine Blood 1+ (Negative); Urine Color Yellow; Urine Glucose Negative (Negative); Urine Ketones Negative (Negative); Urine Nitrite Negative (Negative); Urine Protein Negative (Negative); Urine Specific Gravity 1.014 (1.002-1.030); Urine Urobilinogen Negative (Negative)
[2020-10-03 17:01] LABS: Urine Bacteria Absent (Absent); Urine Red Blood Cell 3+(>10/hpf) (Absent); Urine White Blood Cell Trace(0-5/hpf) (Absent)
[2020-10-03 19:26] LABS: Magnesium 1.9 mg/dL (1.9-2.7)
[2020-10-03 19:40] LABS: TSH Ultra Thyroid Stim Horm 4.51 mcIU/mL (0.34-5.60)
[2020-10-03 20:15] LABS: Troponin I 0.05 ng/mL (<0.03)
[2020-10-03 22:23] LABS: Troponin I 0.03 ng/mL (<0.03)
[2020-10-03] MEDS: CMCS:Ticagrelor 60 mg TAB (NF) PO SCH (23:59)
[2020-10-04 00:52] LABS: Troponin I 0.05 ng/mL (<0.03)
[2020-10-04 05:25] LABS: ABS Eosinophils 0.1 10^3/ul (0-0.6); ABS Lymphocytes 1.3 10^3/ul (1.0-4.8); ABS Monocytes 0.4 10^3/ul (0-0.8); ABS Neutrophils 3.6 10^3/ul (1.5-7.7); Eosinophil % 1.5 %; Hematocrit 36 % (42-52); Hemoglobin 12.3 g/dL (14.0-18.0); Lymphocyte % 24.7 %; Mean Corpuscular HGB Conc 35 g/dL (31-36); Mean Corpuscular Hemoglobin 33 pg (27-31); Mean Corpuscular Volume 94 fL (80-94); Mean Platelet Volume 9.6 fL (7.4-10.4); Platelet Count 121 10^3/uL (150-450); Red Cell Distribution Width 13 % (10-15); White Blood Count 5.4 10^3/uL (3.5-10.8)
[2020-10-04 05:35] LABS: Anion Gap 4 mmol/L (2-11); BUN/Creatinine Ratio 14.7 (8-20); Blood Urea Nitrogen 15 mg/dL (6-24); CO2 Carbon Dioxide 25 mmol/L (22-32); Calcium 8.8 mg/dL (8.6-10.3); Chloride 111 mmol/L (101-111); EGFR African American 84.8 (>60); EGFR Non-African American 70.1 (>60); Glucose 99 mg/dL (70-100); Potassium 3.6 mmol/L (3.5-5.0); Sodium 140 mmol/L (135-145)
[2020-10-04] MEDS: Heparin 5000 UNITS/ML 1 mL VIAL SUBCUT SCH ×2 (06:03)
[2020-10-04] MEDS ORDERED: Aspirin EC 81 mg TAB.EC (enteric coated) PO SCH (09:00)
[2020-10-04] MEDS: CMCS:Ticagrelor 60 mg TAB (NF) PO SCH (09:13)
[2020-10-04 10:21] LABS: Troponin I 0.04 ng/mL (<0.03)
[2020-10-04 11:17] VITALS: BP 138/68
== END 2020-10-04 14:30 | disposition home or self-care (01) ==
LOC: MEDTELE 14:15 → ED 14:15 → MEDTELE 22:54
PROVIDERS: ADMIT Student in an Organized Health Care Education/Training Program; ATTEND Internal Medicine